=== PATIENT | male | born 1965 | race Caucasian/White ===

== ENCOUNTER → 2018-12-08 09:01 | Outpatient (CLI) | payer OTHER, SELFPAY ==
[2017-08-11 19:57] VITALS: BMI 31.2
[2018-12-08 12:43] LABS: Absolute Lymphocyte Count 2.23 X10^3/ul (0.83-4.51); Absolute Neutrophil Count 3.1 X10^3/uL (2.0-7.7); Basophil# 0.02 X10^3/uL; Basophil% 0.3 % (0-1); Eosinophils% 3.2 % (0-5); Hemoglobin 12.6 g/dl (13.0-16.5); Lymphocyte # 2.23 X10^3/ul (4.0); Mean Corp Hgb Conc 33.2 g/gl (32-36); Mean Corpuscular Hgb 30.8 pg (27.0-32.0); Mean Corpuscular Volume 92.9 fL (80-94); Mean Platelet Vol. 10.2 fl (6.2-12.0); Monocyte# 0.62 X10^3/uL; Neutrophil # 3.12 X10^3/uL (2.7-7.7); Neutrophil % 50.3 % (47-70); Platelet Count 289 K/mm3 (150-450); RBC Distribution Width CV 12.5 % (11.6-14.6); RBC Distribution Width SD 42.4 fl (35.1-43.9); Red Blood Count 4.09 M/mm3 (4.6-6.2); White Blood Count 6.2 K/mm3 (4.4-11.0)
[2018-12-08 12:45] LABS: POSITIVE COUNT NO; POSITIVE DIFFERENTIAL NO; POSITIVE MORPHOLOGY NO
[2018-12-08 13:07] LABS: Microalbumin,Random Urine 82.5 mg/L (NO RANGE EST.); Microalbumin:Creatinine Ratio 67.1 mg/g CRE (<30 mg/g CRE)
[2018-12-08 13:08] LABS: Hemoglobin A1c 6.1 % (4.2-6.3)
[2018-12-08 13:13] LABS: Vitamin B12 403 pg/mL (211-911)
[2018-12-08 13:56] LABS: AST(SGOT) 33 U/L (15-37); Alanine Aminotransfer ALT/SGPT 46 U/L (16-61); Albumin, Serum 4.3 g/dL (3.2-5.0); Alkaline Phosphatase 87 U/L (45-117); Anion Gap 9 (5-15); BUN 15 mg/dL (7-18); BUN/Creat Ratio 12.6 RATIO (10-20); Calcium,Total 9.5 mg/dL (8.5-10.1); Chloride 101 mmol/L (98-107); Cholesterol 162 mg/dL (200); Creatinine, Serum 1.19 mg/dL (0.70-1.30); EST Glomerular Filtration Rate 67 mL/min (>60); Est Glom Filt Rate - Afr Amer 81 mL/min (>60); Globulin 4.1 g/dL (2.2-4.2); Glucose 114 mg/dL (74-106); High Density Lipoprotein 47 mg/dL; PSA,Total - Annual Screen 0.63 ng/mL (0.00-4.00); Potassium 4.9 mmol/L (3.5-5.1); Protein, Total 8.4 g/dL (6.4-8.2); Sodium Level 136 mmol/L (136-145); Triglycerides 246 mg/dL; Very Low Density Lipoprotein 49 mg/dL (5-40)
== END ==
PROVIDERS: Family Provider Family Medicine; PCP Family Medicine; Visit Provider Family Medicine
DX: Z00.00 Encounter for general adult medical examination without abnormal findings (principal); E11.9 Type 2 diabetes mellitus without complications; R80.9 Proteinuria, unspecified; F10.20 Alcohol dependence, uncomplicated; E53.8 Deficiency of other specified B group vitamins; Z12.5 Encounter for screening for malignant neoplasm of prostate
CPT/HCPCS: 36415; 80053; 80061; 82043; 82570; 82607; 82746; 83036; 84153; 85025; G0103

== ENCOUNTER → 2019-06-08 08:33 | Outpatient (CLI) | payer OTHER, SELFPAY ==
[2019-06-08 12:59] LABS: Absolute Lymphocyte Count 1.84 X10^3/uL (0.83-4.51); Absolute Neutrophil Count 4.2 X10^3/uL (2.0-7.7); Basophil# 0.03 X10^3/uL; Basophil% 0.4 % (0-1); Eosinophil# 0.14 X10^3/uL; Eosinophils% 1.9 % (0-5); Hematocrit 40.8 % (40-54); Hemoglobin 13.9 g/dL (13.0-16.5); Lymphocyte # 1.84 X10^3/ul (4.0); Mean Corp Hgb Conc 34.1 g/dL (32-36); Mean Corpuscular Hgb 32.9 pg (27.0-32.0); Mean Corpuscular Volume 96.5 fL (80-94); Mean Platelet Vol. 9.5 fl (6.2-12.0); Monocyte# 1.12 X10^3/uL; Monocyte% 15.2 % (0-10); NRBC Flagged by Analyzer 0 % (0-5); Neutrophil % 57.1 % (47-70); Platelet Count 281 K/mm3 (150-450); RBC Distribution Width CV 12.7 % (11.6-14.6); Red Blood Count 4.23 M/mm3 (4.6-6.2); White Blood Count 7.4 K/mm3 (4.4-11.0)
[2019-06-08 13:31] LABS: AST(SGOT) 46 U/L (15-37); Alanine Aminotransfer ALT/SGPT 63 U/L (16-61); Albumin, Serum 4.1 g/dL (3.2-5.0); Alkaline Phosphatase 81 U/L (45-117); Anion Gap 9 (5-15); BUN 10 mg/dL (7-18); BUN/Creat Ratio 8.8 RATIO (10-20); Calcium,Total 9.1 mg/dL (8.5-10.1); Chloride 96 mmol/L (98-107); Cholesterol 131 mg/dL (200); Creatinine, Serum 1.14 mg/dL (0.70-1.30); EST Glomerular Filtration Rate 71 mL/min (>60); Est Glom Filt Rate - Afr Amer 85 mL/min (>60); Globulin 4.1 g/dL (2.2-4.2); Glucose 101 mg/dL (74-106); High Density Lipoprotein 76 mg/dL; Potassium 4.1 mmol/L (3.5-5.1); Protein, Total 8.2 g/dL (6.4-8.2); Sodium Level 131 mmol/L (136-145); Triglycerides 81 mg/dL; Very Low Density Lipoprotein 16 mg/dL (5-40)
[2019-06-08 13:32] LABS: Hemoglobin A1c 5.9 % (4.2-6.3)
== END ==
PROVIDERS: Family Provider Family Medicine; PCP Family Medicine; Visit Provider Family Medicine
DX: E11.9 Type 2 diabetes mellitus without complications (principal); I10 Essential (primary) hypertension; E78.5 Hyperlipidemia, unspecified; R00.0 Tachycardia, unspecified
CPT/HCPCS: 36415; 80053; 80061; 83036; 85025

== ENCOUNTER → 2019-08-10 13:46 | Outpatient (CLI) | payer OTHER, SELFPAY ==
--- NOTE | 2019-08-10 13:50 | ECHOD_ITS ---
Reason For Study: SYNCOPE Procedure This was a 2D Doppler, Color Flow transthoracic echocardiogram. Exam performed in department. Left Ventricle Normal LV size. Left ventricular systolic function is normal. The estimated ejection fraction is 60 %. Stage 1 diastolic dysfunction. No regional wall motion abnormalities noted. Right Ventricle Normal RV size. Normal systolic function. Atria Normal left atrium. Normal right atrium. Mitral Valve Normal mitral valve. Tricuspid Valve Normal tricuspid valve. Mild (1+) tricuspid valve insufficiency. Pulmonary artery systolic pressure is 38 mmHg. Aortic Valve The aortic valve is not well visualized. Pulmonic Valve Normal pulmonic valve. Great Vessels Normal aortic root. The pulmonary artery is normal size. Normal inferior vena cava. Pericardium/Pleural No pericardial effusion. MMode/2D Measurements & Calculations LVIDd: 5.3 cm IVSd: 0.91 cm Ao root diam: 3.6 cm LVIDs: 3.4 cm LVPWd: 0.93 cm FS: 37.0 % LAV(MOD-bp): 62.3 ml LA A4 area: 20.0 cm2 LA dimension(2D): 3.9 cm LAV(MOD-bp) Indexed: 30.5 ml/m2 LAV(MOD-sp2): 59.7 ml LAV(MOD-sp4): 60.4 ml RA A4 area: 14.5 cm2 Time Measurements MV dec time: 0.12 sec Doppler Measurements & Calculations MV E max mekhi: 90.2 cm/sec Lat Peak E' Mekhi: 10.9 cm/sec Med Peak E' Mekhi: 10.1 cm/sec MV A max mekhi: 102.8 cm/sec E/E' lat: 8.2 E/E' med: 9.0 MV E/A: 0.88 Ao V2 max: 123.0 cm/sec LV V1 max: 95.0 cm/sec TR max mekhi: 289.2 cm/sec Ao max P.1 mmHg LV V1 max P.6 mmHg TR max P.5 mmHg Interpretation Summary Normal LV size. Left ventricular systolic function is normal. The estimated ejection fraction is 60 %. Stage 1 diastolic dysfunction. Mild (1+) tricuspid valve insufficiency. Pulmonary artery systolic pressure is 38 mmHg. Ordering Physician: Heidi Urbina Referring Physician: Heidi Urbina Performed By: Sonali Kovacs, HIEN, RVT
== END ==
PROVIDERS: Family Provider Family Medicine; PCP Family Medicine; Referring Provider Family Medicine; Visit Provider Family Medicine
DX: I10 Essential (primary) hypertension (principal); R55 Syncope and collapse
CPT/HCPCS: 93306

== ENCOUNTER → 2020-09-03 09:22 | Outpatient (CLI) | payer OTHER, SELFPAY ==
[2020-09-03 12:44] LABS: Absolute Lymphocyte Count 1.62 X10^3/uL (0.83-4.51); Absolute Neutrophil Count 2.4 X10^3/uL (2.0-7.7); Basophil# 0.05 X10^3/uL; Eosinophil# 0.24 X10^3/uL; Eosinophils% 4.6 % (0-5); Hematocrit 35.9 % (40-54); Hemoglobin 12.4 g/dL (13.0-16.5); Lymphocyte # 1.62 X10^3/ul (4.0); Mean Corp Hgb Conc 34.5 g/dL (32-36); Mean Corpuscular Hgb 33.5 pg (27.0-32.0); Mean Platelet Vol. 10.3 fl (6.2-12.0); Monocyte# 0.93 X10^3/uL; Monocyte% 17.8 % (0-10); NRBC Flagged by Analyzer 0 % (0-5); Neutrophil # 2.36 X10^3/uL (2.7-7.7); Neutrophil % 45.2 % (47-70); Platelet Count 226 K/mm3 (150-450); RBC Distribution Width SD 42.6 fl (35.1-43.9); White Blood Count 5.2 K/mm3 (4.4-11.0)
[2020-09-03 13:02] LABS: Vitamin B12 568 pg/mL (211-911)
[2020-09-03 13:19] LABS: AST(SGOT) 101 U/L (15-37); Alanine Aminotransfer ALT/SGPT 135 U/L (16-61); Albumin, Serum 4.1 g/dL (3.2-5.0); Alkaline Phosphatase 102 U/L (45-117); Anion Gap 10 (5-15); BUN 15 mg/dL (7-18); BUN/Creat Ratio 13.6 RATIO (10-20); Calcium,Total 9.7 mg/dL (8.5-10.1); Chloride 102 mmol/L (98-107); Cholesterol 151 mg/dL (200); EST Glomerular Filtration Rate 73 mL/min (>60); Est Glom Filt Rate - Afr Amer 89 mL/min (>60); Globulin 4.3 g/dL (2.2-4.2); Glucose 94 mg/dL (74-106); High Density Lipoprotein 59 mg/dL; PSA,Total - Annual Screen 1.23 ng/mL (0.00-4.00); Protein, Total 8.4 g/dL (6.4-8.2); Sodium Level 138 mmol/L (136-145); Triglycerides 176 mg/dL; Very Low Density Lipoprotein 35 mg/dL (5-40)
[2020-09-03 13:23] LABS: Hemoglobin A1c 5.8 % (3.8-5.6)
[2020-09-03 13:28] LABS: Microalbumin:Creatinine Ratio 371.3 mg/g CRE (<30 mg/g CRE)
== END ==
PROVIDERS: PCP Family Medicine; Visit Provider Family Medicine
DX: Z00.00 Encounter for general adult medical examination without abnormal findings (principal); R73.03 Prediabetes; F10.20 Alcohol dependence, uncomplicated; R80.9 Proteinuria, unspecified; Z12.5 Encounter for screening for malignant neoplasm of prostate
CPT/HCPCS: 36415; 80053; 80061; 82043; 82570; 82607; 82746; 83036; 84153; 85025; G0103

== ENCOUNTER → 2020-09-17 09:33 | Outpatient (CLI) | payer OTHER, SELFPAY ==
--- NOTE | 2020-09-17 09:44 | US_ITS ---
STUDY: ABDOMINAL ULTRASOUND - RIGHT UPPER QUADRANT REASON FOR VISIT: Male, 55 years old RUQ/EPIGASTRIC PAIN, NAUSEA XX 2-3 MONTHS TECHNIQUE: Ultrasound evaluation of the right upper quadrant was performed with real-time and static brooks-scale imaging. TECHNICAL QUALITY: Adequate. COMPARISON: None. FINDINGS: Liver: The liver measures 16.3 cm. There is increased echogenicity consistent with fatty infiltration. The bile ducts are within normal limits. There is hepatic color flow. The direction of portal flow is hepatopetal. There is no demonstrated mass lesion. Gallbladder: Normal distended gallbladder. The gallbladder wall measures 3 mm. There is a negative sonographic Crawford''s sign. There is no pericholecystic fluid. There are no gallstones. Common Bile Duct (C.B.D.): The common bile duct measures 3 mm. Pancreas: Normal size of the head, body and tail of the pancreas. There is normal echogenicity of the pancreas. There is no demonstrated pancreatic mass or cyst. Right Kidney: Normal size of the right kidney. The right kidney measures 12.3 cm. Normal renal cortex. The right cortex measures 1.3 cm. There is no demonstrated renal mass or cyst. There is no right hydronephrosis. US/Abdomen Limited IMPRESSION: Fatty infiltration of the liver. Electronically Signed: Jordan Jacobs MD at 10:30 EST Tel , Service support ,
--- NOTE | 2020-09-17 10:10 | RAD_ITS ---
STUDY: X-RAY CHEST REASON FOR EXAM: Male, 55 years old. SOB RUQ ABDOMAN PAIN. HX OF COVID 1 MONTH AGO. TECHNIQUE: PA and lateral views of the chest. COMPARISON: 08/11/2017 FINDINGS: The lungs are clear and expanded. There is no demonstrated pleural abnormality. Normal size heart. Normal mediastinum and coral. Normal visualized pulmonary arteries. Normal visualized aortic arch and descending thoracic aorta. Normal visualized thoracic spine. Normal visualized ribs, clavicles, and shoulders. There is no demonstrated abnormality of the visualized soft tissue structures of the upper abdomen. RAD/Chest PA and Lateral IMPRESSION: Normal x-ray examination of the chest. Electronically Signed: Jordan Jacobs MD at 10:27 EST Tel , Service support ,
== END ==
PROVIDERS: PCP Family Medicine; Referring Provider Family Medicine; Visit Provider Family Medicine
DX: R10.11 Right upper quadrant pain (principal)
CPT/HCPCS: 71046; 76705

== ENCOUNTER → 2021-02-17 08:27 | Outpatient (CLI) | payer OTHER, SELFPAY ==
[2017-08-11 19:57] VITALS: BMI 31.2
[2021-02-17 09:46] LABS: Absolute Neutrophil Count 3.9 X10^3/uL (2.0-7.7); Basophil# 0.06 X10^3/uL; Basophil% 0.7 % (0-1); Eosinophil# 0.25 X10^3/uL; Eosinophils% 3.1 % (0-5); Hematocrit 37.3 % (40-54); Hemoglobin 12.5 g/dL (13.0-16.5); Lymphocyte % 35.6 % (19-41); Mean Corp Hgb Conc 33.5 g/dL (32-36); Mean Corpuscular Hgb 31.6 pg (27.0-32.0); Mean Corpuscular Volume 94.2 fL (80-94); Mean Platelet Vol. 10.1 fl (6.2-12.0); Monocyte# 1.01 X10^3/uL; Monocyte% 12.4 % (0-10); NRBC Flagged by Analyzer 0 % (0-5); Neutrophil # 3.87 X10^3/uL (2.7-7.7); Neutrophil % 47.5 % (47-70); Platelet Count 316 K/mm3 (150-450); RBC Distribution Width CV 12.4 % (11.6-14.6); RBC Distribution Width SD 42.7 fl (35.1-43.9); Red Blood Count 3.96 M/mm3 (4.6-6.2); White Blood Count 8.2 K/mm3 (4.4-11.0)
[2021-02-17 10:15] LABS: AST(SGOT) 25 U/L (15-37); Alanine Aminotransfer ALT/SGPT 31 U/L (16-61); Albumin, Serum 3.9 g/dL (3.2-5.0); Alkaline Phosphatase 113 U/L (45-117); Anion Gap 8 (5-15); BUN 18 mg/dL (7-18); BUN/Creat Ratio 17.8 RATIO (10-20); Calcium,Total 9.6 mg/dL (8.5-10.1); Chloride 103 mmol/L (98-107); Cholesterol 154 mg/dL (200); Creatinine, Serum 1.01 mg/dL (0.70-1.30); EST Glomerular Filtration Rate 81 mL/min (>60); Est Glom Filt Rate - Afr Amer 98 mL/min (>60); Globulin 4.1 g/dL (2.2-4.2); Glucose 119 mg/dL (74-106); High Density Lipoprotein 46 mg/dL; Potassium 4.1 mmol/L (3.5-5.1); Sodium Level 138 mmol/L (136-145); Triglycerides 153 mg/dL; Very Low Density Lipoprotein 31 mg/dL (5-40)
[2021-02-17 11:29] LABS: Hemoglobin A1c 5.9 % (3.8-5.6)
== END ==
PROVIDERS: PCP Family Medicine; Referring Provider Family Medicine; Visit Provider Family Medicine
DX: I10 Essential (primary) hypertension (principal); R73.03 Prediabetes; D53.9 Nutritional anemia, unspecified
CPT/HCPCS: 36415; 80053; 80061; 83036; 85025

== ENCOUNTER 2022-01-28 12:59 | Inpatient (IN) | payer OTHER, SELFPAY ==
[2022-01-28] VITALS (7 sets, daily range): BP systolic 137–155; BP diastolic 62–94; PULSE 84–106; RESP 16–18; TEMP 36.6–37.2; O2SAT 94–98; BMI 34.9; BMI 32.8
--- NOTE | 2022-01-28 13:20 | EX.ED.DYSGE1 ---
HPI <TERA David - Last Filed: 01/28/22 15:24> History of Present Illness Chief Complaint: Abd Pain Narrative Narrative: 57-year-old male with history of hypertension, hyperlipidemia who drinks alcohol daily, 6-8 beers daily with history of pancreatitis presents to the emergency department with 2 days of generalized abdominal bloating, diarrhea, nausea. Patient states the pain in his belly became worse over the last 24 hours, and due to his recent history of pancreatitis, continue alcohol use, he is scared and would like to be evaluated. Denies any fevers or chills, denies any blood in stool or vomit. PFSH <TERA David - Last Filed: 01/28/22 15:24> PFSH Medical History (Updated 01/28/22 @ 15:34 by Lisseth Ham) Alcohol use disorder Anxiety BPH (benign prostatic hyperplasia) Former smoker History of tobacco use HTN (hypertension) Pancreatitis Home Medications finasteride 5 mg PO DAILY 08/11/17 [History Last Taken 01/28/22] atorvastatin 40 mg PO DAILY #30 tab 08/12/17 [Rx Last Taken 01/28/22] buspirone 75 mg PO TID 01/28/22 [History Last Taken 01/28/22] lorazepam 1 mg PO DAILY PRN PRN 01/28/22 [History Last Taken Unknown] losartan 25 mg PO DAILY 01/28/22 [History Last Taken 01/28/22] metoprolol tartrate 25 mg PO BID 01/28/22 [History Last Taken 01/28/22] sildenafil (pulm.hypertension) 20 mg PO DAILY 01/28/22 [History Last Taken 01/28/22] Allergy/AdvReac Type Severity Reaction Status Date / Time No Known Allergies Allergy Verified 01/28/22 13:00 Social History (Updated 01/28/22 @ 15:33 by Mahesh DIXON) household members: spouse housing: house Smoking Status: Current every day smoker tobacco type: cigarettes alcohol intake: current alcohol intake frequency: 3 or more drinks per day Alcohol type: beer and wine details: 6-8 beers daily with wine. ROS <TERA David - Last Filed: 01/28/22 15:24> ROS ED ROS Narrative Constitutional: Negative for fever, chills, weight loss, weakness Eyes: Negative for vision loss, vision change, double vision ENT: Negative for any sore throat, ear pain, congestion Cardiovascular: Negative for any chest pain, tightness, palpitations, racing heartbeat Respiratory: Negative for any cough, sputum production, hemoptysis, shortness of breath, shortness of breath on exertion, orthopnea Gastrointestinal: Negative for any a vomiting, constipation, blood in stool, blood in vomit. Positive for abdominal pain, nausea, diarrhea : Negative for any urinary frequency, incontinence, dysuria, retention, blood in urine Muscle skeletal: Negative for any muscle joint pain, stiffness, myalgias, arthralgias, neck pain, back pain Neurological: Negative for any headache, dizziness, syncope, numbness or tingling Skin: Negative for any rashes, lumps, itching, abrasions, lacerations Psychiatric: Negative for any depression, anxiety, stress, suicidal ideation, homicidal ideation Hematologic: Negative for any easy bruising, excessive bruising, easy bleeding Allergies: Negative for any eczema, hives, rash EXAM <TERA David - Last Filed: 01/28/22 15:24> Physical Exam Narrative Exam Narrative: Vital signs reviewed. HEET: Head normocephalic atraumatic, TMs clear bilaterally. Posterior pharynx is clear, moist mucous membranes. Nares clear bilaterally. Neck: Supple with no lymphadenopathy or tenderness. No signs of meningismus, negative jolt sign. Cardiac: Regular rate and rhythm no murmurs gallops or rubs, equal peripheral pulses bilaterally. Respiratory: Lungs clear to auscultation bilaterally. No chest tenderness. Abdomen: Soft, patient's abdomen is distended, it is tender throughout the lower abdomen. Patient states that this also causes pain to his lower back.. No abdominal bruit or pulsatile masses. No hepatosplenomegaly Extremities: No peripheral edema, no signs of gross trauma or deformity. Active full range of motion of all extremities. Neuro: Cranial nerves II through XII intact, no focal neurological deficits. Skin: Clean dry and intact with no rash, purpura, petechiae, vesicles or pustules. Backslash flank: No CVA tenderness, no midline spinal tenderness, no deformity. Psych: Normal mood and affect. No SI, HI or acute psychosis. Const Vital Signs: 01/28/22 13:00 Temperature 98.3 F Temperature Source Temporal Pulse Rate 95 Respiratory Rate 17 Blood Pressure 155/89 H Blood Pressure Mean 111 Pulse Ox 98 Oxygen Delivery Method Room Air Positive well nourished and well developed General Appearance ED: well developed <Dr. Robel Leyva MD - Last Filed: 01/28/22 16:15> Physical Exam Const Vital Signs: 01/28/22 13:00 Temperature 98.3 F Temperature Source Temporal Pulse Rate 95 Respiratory Rate 17 Blood Pressure 155/89 H Blood Pressure Mean 111 Pulse Ox 98 Oxygen Delivery Method Room Air MDM <TERA David - Last Filed: 01/28/22 15:24> MDM MDM Narrative Medical decision making narrative: Patient arrives in mild distress secondary to abdominal pain. Patient presents the emergency department with abdominal bloating, abdominal pain, history of pancreatitis and still continues to drink alcohol. Patient did receive a full abdominal work-up. Patient's laboratory values show a CBC with leukocytosis of 16.3, patient's chemistries were unremarkable, patient's lipase was elevated at 4000 161 with amylase of 1472. This is concerning for acute pancreatitis. Patient did receive a CT scan without contrast, this verified the diffuse enlargement of pancreas with diffuse pancreatic inflammatory changes involving left perirenal space extending to the right side of the midline as well as the root of the mesentery. Patient did require 2 doses of IV pain medicine, patient to receive IV fluids, IV Zofran. Patient will be admitted for acute pancreatitis. Lab Data Attestation: I reviewed the patient's lab results. Labs: Laboratory Results - last 24 hr 01/28/22 01/28/22 13:21 13:21 WBC 16.3 H RBC 4.87 Hgb 15.6 Hct 43.7 MCV 89.7 MCH 32.0 MCHC 35.7 RDW Std Deviation 39.6 RDW Coeff of [place] 12.0 Plt Count 309 MPV 9.2 Immature Gran % (Auto) 0.500 Neut % (Auto) 83.0 H Lymph % (Auto) 5.6 L [place] % (Auto) 10.7 H Eos % (Auto) 0.0 Baso % (Auto) 0.2 Absolute Neuts (auto) 13.6 H Absolute Lymphs (auto) 0.91 Nucleated RBC % 0 Diff Path Review May foll Sodium 129 L Potassium 4.0 Chloride 95 L Carbon Dioxide 25.0 Anion Gap 9 BUN 18 Creatinine 1.00 Estim Creat Clear Calc 74.36 Est GFR (MDRD) Af Amer 99 Est GFR (MDRD) Non-Af 81 BUN/Creatinine Ratio 18.0 Glucose 171 H Calcium 9.9 Total Bilirubin 0.70 Direct Bilirubin 0.17 AST 39 H ALT 45 Alkaline Phosphatase 107 Total Protein 8.0 Albumin 3.8 Globulin 4.2 Amylase 1472 H Lipase 66517 H Radiography Diagnostic Testing: Clinical Impression(s) from Imaging Studies Abdomen/Pelvis CT 01/28/22 14:08 IMPRESSION: Diffuse enlargement of the pancreas with diffuse pancreatic inflammatory changes involving the left pararenal space extending into the right side of the midline as well as the root of the mesentery. No evidence of a suitable cyst formation at this time. Diffuse fatty infiltration of the liver. Electronically Signed: Aleksandr Adames MD at 14:43 EDT , <Dr. Robel Leyva MD - Last Filed: 01/28/22 16:15> MDM MDM Narrative Medical decision making narrative: Seen and evaluated independently and in conjunction with nurse practitioner. Agree with notes above unless documented otherwise. Patient presenting with 1 or 2 days of diffuse abdominal discomfort, distention. He has been drinking alcohol lately but states the discomfort did not start necessarily associated with the intake. Exam: NAD, diffusely tender and distended/obese, no fluid wave, no jaundice, no guarding or rebound. Work-up consistent with pancreatitis. Will admit for further treatment. Lab Data Attestation: I reviewed the patient's lab results. Labs: Laboratory Results - last 24 hr 01/28/22 01/28/22 13:21 13:21 WBC 16.3 H RBC 4.87 Hgb 15.6 Hct 43.7 MCV 89.7 MCH 32.0 MCHC 35.7 RDW Std Deviation 39.6 RDW Coeff of [place] 12.0 Plt Count 309 MPV 9.2 Immature Gran % (Auto) 0.500 Neut % (Auto) 83.0 H Lymph % (Auto) 5.6 L [place] % (Auto) 10.7 H Eos % (Auto) 0.0 Baso % (Auto) 0.2 Absolute Neuts (auto) 13.6 H Absolute Lymphs (auto) 0.91 Nucleated RBC % 0 [address] Review May foll Sodium 129 L Potassium 4.0 Chloride 95 L Carbon Dioxide 25.0 Anion Gap 9 BUN 18 Creatinine 1.00 Estim Creat Clear Calc 74.36 Est GFR (MDRD) Af Amer 99 Est GFR (MDRD) Non-Af 81 BUN/Creatinine Ratio 18.0 Glucose 171 H Calcium 9.9 Total Bilirubin 0.70 Direct Bilirubin 0.17 AST 39 H ALT 45 Alkaline Phosphatase 107 Total Protein 8.0 Albumin 3.8 Globulin 4.2 Amylase 1472 H Lipase 09083 H Radiography Diagnostic Testing: Clinical Impression(s) from Imaging Studies Abdomen/Pelvis CT 01/28/22 14:08 IMPRESSION: Diffuse enlargement of the pancreas with diffuse pancreatic inflammatory changes involving the left pararenal space extending into the right side of the midline as well as the root of the mesentery. No evidence of a suitable cyst formation at this time. Diffuse fatty infiltration of the liver. Electronically Signed: Aleksandr Adames MD at 14:43 EDT , Discharge Plan Dx/Rx/DC Orders Clinical Impression: Acute alcoholic pancreatitis Disposition Disposition: [facility]
[2022-01-28] MEDS: Ondansetron 4 MG/2 ML Vial IV (13:23)
[2022-01-28] MEDS: Morphine 4 MG/ML Syringe IV ×4 (13:23→21:18)
[2022-01-28] MEDS: 0.9% Normal Saline 1,000 ML 1000 ML IV (13:23)
[2022-01-28 13:33] LABS: Absolute Lymphocyte Count 0.91 X10^3/uL (0.83-4.51); Absolute Neutrophil Count 13.6 X10^3/uL (2.0-7.7); Basophil# 0.04 X10^3/uL; Basophil% 0.2 % (0-1); Hematocrit 43.7 % (40-54); Hemoglobin 15.6 g/dL (13.0-16.5); Lymphocyte # 0.91 X10^3/ul (0.83-4.51); Lymphocyte % 5.6 % (19-41); Mean Corp Hgb Conc 35.7 g/dL (32-36); Mean Corpuscular Volume 89.7 fL (80-94); Mean Platelet Vol. 9.2 fl (6.2-12.0); Monocyte# 1.75 X10^3/uL; Monocyte% 10.7 % (0-10); NRBC Flagged by Analyzer 0 % (0-5); Neutrophil # 13.56 X10^3/uL (2.7-7.7); POSITIVE DIFFERENTIAL YES; Platelet Count 309 K/mm3 (150-450); RBC Distribution Width SD 39.6 fl (35.1-43.9); Red Blood Count 4.87 M/mm3 (4.6-6.2); White Blood Count 16.3 K/mm3 (4.4-11.0)
[2022-01-28 13:36] LABS: Differential Indicated SCAN CRITERIA MET
[2022-01-28 13:52] LABS: AST(SGOT) 39 U/L (15-37); Alanine Aminotransfer ALT/SGPT 45 U/L (16-61); Albumin, Serum 3.8 g/dL (3.2-5.0); Alkaline Phosphatase 107 U/L (45-117); Anion Gap 9 (5-15); BUN 18 mg/dL (7-18); Bilirubin, Direct 0.17 mg/dL (0.00-0.30); Calcium,Total 9.9 mg/dL (8.5-10.1); Chloride 95 mmol/L (98-107); EST Glomerular Filtration Rate 81 mL/min (>60); Est Glom Filt Rate - Afr Amer 99 mL/min (>60); Estimated Creatinine Clearance 74.36 ml/min; Globulin 4.2 g/dL (2.2-4.2); Glucose 171 mg/dL (74-106); Lipase 24861 U/L (73-393); Sodium Level 129 mmol/L (136-145)
--- NOTE | 2022-01-28 14:08 | CT_ITS ---
STUDY: CT ABDOMEN AND PELVIS WITHOUT CONTRAST REASON FOR EXAM: Male, 57 years old. Left lower quadrant pain. History of pancreatitis. 5 day history of diarrhea. RADIATION DOSAGE (If Supplied By Facility): CTDIvol = ( 18.45 ) mGy, DLP = ( 911.30 ) mGycm TECHNIQUE: Transaxial images were obtained from the dome of the diaphragm to the symphysis pubis without oral contrast, and without intravenous contrast. Sagittal and coronal images were reconstructed. Individualized dose optimization techniques were used for this CT. COMPARISON: None. FINDINGS: Increased interstitial markings with subpleural blebs at the lung bases suggestive of chronic interstitial fibrosis. Mild coronary artery calcification. There is decreased attenuation of the liver consistent with steatosis. Borderline hepatomegaly. Normal gallbladder and extrahepatic biliary system. Normal spleen. There is diffuse enlargement of the pancreas with bonifacio-pancreatic edema suggesting acute pancreatitis. Increased markings are seen within the left parapelvic region. Inflammatory changes also seen within the root of the mesentery. Normal bilateral adrenal glands. Normal right kidney. Normal left kidney. Normal visualized stomach. Normal small intestine. There are multiple colonic diverticula consistent with diverticulosis. The appendix is visualized and appears normal. There is scattered atherosclerotic calcification of the abdominal aorta, without a demonstrated aneurysm. Normal inferior vena cava. Normal retroperitoneum. Normal urinary bladder. Normal abdominal wall. Disc space narrowing and disc degeneration with spondylosis. CT/Abdomen/Pelvis without Cont IMPRESSION: Diffuse enlargement of the pancreas with diffuse pancreatic inflammatory changes involving the left pararenal space extending into the right side of the midline as well as the root of the mesentery. No evidence of a suitable cyst formation at this time. Diffuse fatty infiltration of the liver. Electronically Signed: Aleksandr Adames MD at 14:43 EDT ,
[2022-01-28 14:23] LABS: Amylase 1472 U/L (25-115)
--- NOTE | 2022-01-28 15:24 | PCM.HP.STD ---
Documented by User: Mahesh DIXON 01/28/22 15:46 HPI - General HPI Narrative UGO KRUSE is a 57-year-old male who presents to the ED at [facility] on 01/28/2022 with a chief complaint of abdominal pain. Patient believes that his abdominal pain is due to pancreatitis, which he has had in the past. Patient complains of abdominal pain, which says began yesterday. Patient also reports some diarrhea which has been going on for the past 5 days now. Patient does endorse still drinking, reports to drinking 6-8 beers daily with periodic glasses of wine. Patient reports that his last time drinking was yesterday afternoon. Denies any withdrawal symptoms currently. Patient not interested in seeking alcohol withdrawal treatment at this time. Vital signs are stable and patient is afebrile. CBC does show a mild elevated white count 16,000, otherwise unremarkable. CMP shows sodium at 129, other electrolytes stable. LFTs and alk phos are within normal limits. Amylase and lipase are elevated at 14[address] of the abdomen/pelvis demonstrates diffuse enlargement of the pancreas with pancreatic inflammatory changes and diffuse fatty infiltration of the liver. Patient will be admitted for supportive management. [facility] Medical History (Updated 01/28/22 @ 15:34 by Lisseth Ham) Alcohol use disorder Anxiety BPH (benign prostatic hyperplasia) Former smoker History of tobacco use HTN (hypertension) Pancreatitis Home Medications finasteride 5 mg PO DAILY 08/11/17 [History Last Taken 01/28/22] atorvastatin 40 mg PO DAILY #30 tab 08/12/17 [Rx Last Taken 01/28/22] buspirone 75 mg PO TID 01/28/22 [History Last Taken 01/28/22] lorazepam 1 mg PO DAILY PRN PRN 01/28/22 [History Last Taken Unknown] losartan 25 mg PO DAILY 01/28/22 [History Last Taken 01/28/22] metoprolol tartrate 25 mg PO BID 01/28/22 [History Last Taken 01/28/22] sildenafil (pulm.hypertension) 20 mg PO DAILY 01/28/22 [History Last Taken 01/28/22] Allergy/AdvReac Type Severity Reaction Status Date / Time No Known Allergies Allergy Verified 01/28/22 13:00 Family History no significant family his no significant family history Surgical History no surgical history no surgical history Social History (Updated 01/28/22 @ 15:33 by Mahesh DIXON) household members: spouse housing: house Smoking Status: Current every day smoker tobacco type: cigarettes alcohol intake: current alcohol intake frequency: 3 or more drinks per day Alcohol type: beer and wine details: 6-8 beers daily with wine. ROS Constitutional Constitutional: Denies anorexia, change in weight, chills, fatigue, fever(s), malaise, night sweats, weakness or other Eyes Eyes: Denies blurry vision, change in eye color, change in vision, discharge from eye(s), double vision, erythema, eye pain, loss of vision or other ENT HEENT: Denies abnormal hearing, dysphagia, ear pain, epistaxis, headache(s), hearing loss, nasal congestion, nasal discharge, post nasal drip, sinus pressure, sore throat or other Cardiovascular Cardiovascular: Denies chest pain, claudication, dyspnea on exertion, edema, lightheadedness, orthopnea, palpitations, paroxysmal nocturnal dyspnea, rapid heart rate, syncope or other Respiratory/Chest Respiratory/Chest: Denies cough, dyspnea, excessive phlegm production, hemoptysis, productive cough, shortness of breath at rest, shortness of breath with exertion, wheezing or other Gastrointestinal Gastrointestinal: Reports abdominal pain and diarrhea; Denies coffee ground emesis, constipation, dyspepsia, hematemesis, hematochezia, loose stools, melena, nausea, vomiting or other Musculoskeletal Musculoskeletal: Denies arthralgias, back pain, joint pain, joint stiffness, joint swelling, myalgias, neck pain or other Neurologic Neurologic: Denies abnormal gait, abnormal speech, confusion, disequilibrium, dizziness, focal weakness, headache(s), numbness, paresthesias, seizure-like activity, seizures, syncope, tingling, tremor(s) or other Psychiatric Psychiatric: Denies anxiety, depression, homicidal ideation, suicidal ideation or other Endocrine Endocrinology: Denies change in body appearance, cold intolerance, excessive sweating, heat intolerance, polydipsia, polyuria or other Hematologic/Lymphatic Hematologic/Lymphatic: Denies anemia, easy bleeding, easy bruising, lymphadenopathy or other Allergic/Immunologic Allergic/Immunologic: Denies rhinitis, hives, eczemia, asthma or other Vital Signs Vital Signs Vital Signs: 01/28/22 13:00 Temperature 98.3 F Temperature Source Temporal Pulse Rate 95 Respiratory Rate 17 Blood Pressure 155/89 H Blood Pressure Mean 111 Pulse Ox 98 Oxygen Delivery Method Room Air Weight Weight: 222 lb 14.197 oz Body Mass Index (BMI) 34.9 Physical Exam Const alert and oriented x3 General Appearance: cooperative HEENT normocephalic, head/scalp atraumatic and hearing grossly normal bilaterally Eyes PERRL, EOMs intact bilaterally and conjunctivae normal Neck no lymphadenopathy, supple and no JVD Resp normal respiratory effort, no retractions and no use of accessory muscles Cardio regular rate, regular rhythm and no JVD GI Inspection: abdominal distention Palpation: firm Percussion: dullness to percussion Extremity normal to inspection, full ROM and no clubbing, cyanosis or edema Skin no rashes or lesions noted, no wounds and no jaundice Neuro CN's II-XII intact bilaterally Psych affect normal Results Lab / Micro Data Result Diagrams: 01/28/22 13:21 01/28/22 13:21 Labs: Laboratory Results - last 24 hr 01/28/22 13:21: WBC 16.3 H, RBC 4.87, Hgb 15.6, Hct 43.7, MCV 89.7, MCH 32.0, MCHC 35.7, RDW Std Deviation 39.6, RDW Coeff of [place] 12.0, Plt Count 309, MPV 9.2, Immature Gran % (Auto) 0.500, Neut % (Auto) 83.0 H, Lymph % (Auto) 5.6 L, [place] % (Auto) 10.7 H, Eos % (Auto) 0.0, Baso % (Auto) 0.2, Absolute Neuts (auto) 13.6 H, Absolute Lymphs (auto) 0.91, Nucleated RBC % 0, Diff Path Review January01/28/22 13:21: Sodium 129 L, Potassium 4.0, Chloride 95 L, Carbon Dioxide 25.0, Anion Gap 9, BUN 18, Creatinine 1.00, Estim Creat Clear Calc 74.36, Est GFR (MDRD) Af Amer 99, Est GFR (MDRD) Non-Af 81, BUN/Creatinine Ratio 18.0, Glucose 171 H, Calcium 9.9, Total Bilirubin 0.70, Direct Bilirubin 0.17, AST 39 H, ALT 45, Alkaline Phosphatase 107, Total Protein 8.0, Albumin 3.8, Globulin 4.2, Amylase 1472 H, Lipase 75503 H Radiology Impression Abdomen/Pelvis CT 01/28/22 14:08 IMPRESSION: Diffuse enlargement of the pancreas with diffuse pancreatic inflammatory changes involving the left pararenal space extending into the right side of the midline as well as the root of the mesentery. No evidence of a suitable cyst formation at this time. Diffuse fatty infiltration of the liver. Electronically Signed: Aleksandr Adames MD at 14:43 EDT , Assessment & Plan Assessment/Plan (1) Acute alcoholic pancreatitis: (2) Alcohol use disorder: (3) Alcohol abuse: PLAN: Patient is a 57-year-old male who presents to the ED at [facility] on 01/20/2022 with progressively worsening abdominal pain and diarrhea. Patient will be admitted for evaluation and management of acute pancreatitis. 1)Acute pancreatitis Likely related to alcoholic intake, patient reports drinking 6-8 beers daily with periodic wine. Amylase and lipase significantly elevated. LFTs and alk phos are within normal limits. We will not obtain ultrasound of the gallbladder due to known cholestatic pattern. CT of the abdomen/pelvis as above. Plan; initiate IV fluids, initiate phenobarbital 64.8 mg every 6 hours, initiate thiamine and folic acid supplementation, as needed Ativan ordered, CBC and CMP in a.m., clear liquid diet ordered, CIWA scores ordered. 2) acute on chronic alcohol abuse Patient reports last drink was yesterday afternoon. Denies any acute withdrawal symptoms currently. Patient not interested in receiving alcohol counseling services during admission. Plan; initiate phenobarbital as above, initiate thiamine and folic acid supplementation, as needed Ativan ordered, supportive medications as above, CIWA scores ordered. 3) leukocytosis WBC is currently 16,000, likely reactionary to #1. Patient does not appear septic and is without infectious symptoms at this time. Plan; as above. 4) hyperlipidemia Continue statin. 5) tobacco abuse Continue buspirone. 6) HTN Continue metoprolol and losartan. 7) pulmonary hypertension Continue sildenafil. 8) BPH Continue Proscar and Cardura. DVT prophylaxis - Heparin Patient seen by Mahesh Canales PA-C, under the supervision of Dr. Arshad. Time spent on patient care: 25 minutes. Documented by User: Dr. Srinivas Arshad, 01/28/22 16:47 HPI - General General Date of Admission: 01/28/22 [facility] Medical History (Updated 01/28/22 @ 15:34 by Lisseth Ham) Alcohol use disorder Anxiety BPH (benign prostatic hyperplasia) Former smoker History of tobacco use HTN (hypertension) Pancreatitis Home Medications finasteride 5 mg PO DAILY 08/11/17 [History Last Taken 01/28/22] atorvastatin 40 mg PO DAILY #30 tab 08/12/17 [Rx Last Taken 01/28/22] buspirone 75 mg PO TID 01/28/22 [History Last Taken 01/28/22] lorazepam 1 mg PO DAILY PRN PRN 01/28/22 [History Last Taken Unknown] losartan 25 mg PO DAILY 01/28/22 [History Last Taken 01/28/22] metoprolol tartrate 25 mg PO BID 01/28/22 [History Last Taken 01/28/22] sildenafil (pulm.hypertension) 20 mg PO DAILY 01/28/22 [History Last Taken 01/28/22] Allergy/AdvReac Type Severity Reaction Status Date / Time No Known Allergies Allergy Verified 01/28/22 13:00 Family History no significant family his Surgical History no surgical history Social History (Updated 01/28/22 @ 15:33 by Mahesh DIXON) household members: spouse housing: house Smoking Status: Current every day smoker tobacco type: cigarettes alcohol intake: current alcohol intake frequency: 3 or more drinks per day Alcohol type: beer and wine details: 6-8 beers daily with wine. Results Lab / Micro Data Result Diagrams: 01/28/22 13:21 01/28/22 13:21 Charges/Coding Addendum Addendum: Patient was seen and examined today independently of Mahesh Canales, he came to the ER today at [facility] with complaints of generalized abdominal pain since yesterday. Patient has had a history of pancreatitis approximately a year ago, he has been through alcohol detox before but he continues to drink. Patient states he drinks anywhere from 6-8 beers per day. Patient also states that he has been having some diarrhea for the last few days. Patient denied any vomiting and nausea. On examination he appeared in good health and spirits. Vital signs as documented. Skin warm and dry and without overt rashes. Neck without JVD, neck was supple, trachea midline, thyroid was normal. Lungs clear bilaterally, normal air movement was noted. Heart exam notable for regular rhythm, normal sounds and absence of murmurs, rubs or gallops. Abdomen-abdomen was tympanic and distended, I was unable to appreciate any organomegaly due to the abdominal distention. Bowel sounds are diminished. Extremities nonedematous, no cyanosis was noted, no clubbing was noted. Neuro: Cranial nerves II through XII are grossly intact, no focal motor deficits were noted, sensation to light touch and pinprick intact, motor exam 5/5 throughout. Psych: Patient is alert and oriented x3, he does not appear anxious or depressed, he does not appear agitated. Labs obtained in the emergency room showed an elevated white blood cell count at 16.3, patient's sodium was low at 129, chloride was 95, glucose was 171, AST was mildly elevated at 39, patient's alkaline phosphatase was normal, amylase was elevated at 1472 and lipase was 24,861. CT of the abdomen and pelvis without oral contrast showed diffuse enlargement of the pancreas with diffuse pancreatic inflammatory changes as well as diffuse fatty infiltration of the liver. There was no evidence of a pancreatic cyst noted to be present. Impression: #1 acute recurrent pancreatitis secondary to chronic alcoholism-patient will be admitted to [facility], he will be given IV fluids, labs will be monitored. #2 chronic alcoholism-I had a brief discussion with the patient and he states he does not feel he wants to talk with anybody concerning any alcohol detox programs, he states I can do it on my own-I am doubtful of this but if the patient changes his mind about this he will be able to talk to 180 during his admission here. Due to his chronic alcohol intake, I have elected to place him on programmed phenobarbital which could be adjusted as needed. Patient will be given IV Ativan or p.o. Ativan if necessary also. #3 essential hypertension-patient will remain on his current medications #4 alcoholic fatty liver disease-again patient will be encouraged to consider detox services as an outpatient. #5 BPH-patient is currently on medications, these will be continued in the hospital #6 pulmonary hypertension-patient is taking sildenafil as an outpatient, this will be continued #7 chronic anxiety-patient is on BuSpar, this will be continued #8 hyperlipidemia-patient will remain on atorvastatin I have reviewed Mahesh Canales's history and physical including his medical assessment and plan of care with the above additions endorse it. Total clinical time spent by myself addressing the patient's medical issues, reviewing the patient's data, and collaborating with the patient's caregivers: 45 minutes. Visit Charges Inpatient E&M: 51257 Init Hosp L3
--- NOTE | 2022-01-28 15:34 | NURSING ---
MED SURG [facility] ACUTE ALCOHOLIC PANCREATITIS
[2022-01-28] MEDS: 0.9% Saline Lock 10 ML Syringe IV (17:57)
[2022-01-28] MEDS: 0.9% Normal Saline 1,000 ML 175 ML IV ×2 (18:03→22:15)
[2022-01-28] MEDS: Phenobarbital 32.4 MG Tablet 64.8 MG PO (18:09)
[2022-01-28] MEDS: Thiamine Hydrochloride 100 MG Tablet PO (18:09)
[2022-01-28] MEDS: busPIRone 5 MG Tablet 10 MG PO (21:07)
[2022-01-28] MEDS: Atorvastatin Calcium 40 MG Tablet PO (21:08)
[2022-01-28] MEDS: Metoprolol Tartrate 25 MG Tablet PO (21:08)
[2022-01-28] MEDS: Heparin Injection (Vial) 5,000 UNIT/ML VIAL 5000 UNIT SC (21:08)
[2022-01-29] VITALS (12 sets, daily range): BP systolic 94–129; BP diastolic 57–81; PULSE 104–117; RESP 16–18; TEMP 36.5–37.5; O2SAT 92–95
[2022-01-29] MEDS: Phenobarbital 32.4 MG Tablet 64.8 MG PO ×4 (00:10→18:04)
[2022-01-29] MEDS: Morphine 4 MG/ML Syringe IV ×6 (00:19→22:31)
[2022-01-29] MEDS: 0.9% Normal Saline 1,000 ML 175 ML IV ×4 (03:46→22:38)
[2022-01-29 06:03] LABS: Absolute Lymphocyte Count 0.75 X10^3/uL (0.83-4.51); Absolute Neutrophil Count 19.1 X10^3/uL (2.0-7.7); Basophil# 0.05 X10^3/uL; Basophil% 0.2 % (0-1); Hematocrit 43.5 % (40-54); Lymphocyte # 0.75 X10^3/ul (0.83-4.51); Lymphocyte % 3.5 % (19-41); Mean Corp Hgb Conc 34.5 g/dL (32-36); Mean Corpuscular Volume 92.8 fL (80-94); Mean Platelet Vol. 9.1 fl (6.2-12.0); Monocyte# 1.37 X10^3/uL; Monocyte% 6.4 % (0-10); NRBC Flagged by Analyzer 0 % (0-5); Neutrophil # 19.12 X10^3/uL (2.7-7.7); Neutrophil % 89.4 % (47-70); Platelet Count 265 K/mm3 (150-450); RBC Distribution Width CV 12.5 % (11.6-14.6); RBC Distribution Width SD 42.7 fl (35.1-43.9); Red Blood Count 4.69 M/mm3 (4.6-6.2); White Blood Count 21.4 K/mm3 (4.4-11.0)
[2022-01-29 06:29] LABS: AST(SGOT) 48 U/L (15-37); Alanine Aminotransfer ALT/SGPT 33 U/L (16-61); Alkaline Phosphatase 76 U/L (45-117); Anion Gap 8 (5-15); BUN 19 mg/dL (7-18); BUN/Creat Ratio 19.3 RATIO (10-20); Bilirubin, Direct 0.12 mg/dL (0.00-0.30); Calcium,Total 8.6 mg/dL (8.5-10.1); Chloride 98 mmol/L (98-107); Creatinine, Serum 0.99 mg/dL (0.70-1.30); EST Glomerular Filtration Rate 83 mL/min (>60); Est Glom Filt Rate - Afr Amer 100 mL/min (>60); Estimated Creatinine Clearance 80.34 ml/min; Globulin 3.8 g/dL (2.2-4.2); Glucose 179 mg/dL (74-106); Potassium 4.4 mmol/L (3.5-5.1); Protein, Total 6.8 g/dL (6.4-8.2); Sodium Level 128 mmol/L (136-145)
[2022-01-29] MEDS: Thiamine Hydrochloride 100 MG Tablet PO ×2 (07:57→18:05)
[2022-01-29] MEDS: Folic Acid 1 MG Tablet PO (07:57)
[2022-01-29] MEDS: 0.9% Saline Lock 10 ML Syringe IV ×3 (07:57→22:33)
[2022-01-29] MEDS: Multivitamins,Ther W-Minerals Tablet 1 TABLET PO (07:57)
[2022-01-29] MEDS: busPIRone 5 MG Tablet 10 MG PO ×2 (09:39→22:26)
[2022-01-29] MEDS: Doxazosin 4 MG Tablet PO (09:39)
[2022-01-29] MEDS: Heparin Injection (Vial) 5,000 UNIT/ML VIAL 5000 UNIT SC ×2 (09:40→22:35)
[2022-01-29] MEDS: Losartan Potassium 100 MG Tablet PO (09:40)
[2022-01-29] MEDS: Metoprolol Tartrate 25 MG Tablet PO ×2 (09:41→22:26)
[2022-01-29] MEDS: Finasteride 5 MG Tablet PO (09:41)
--- NOTE | 2022-01-29 09:59 | US_ITS ---
STUDY: ABDOMINAL ULTRASOUND - RIGHT UPPER QUADRANT REASON FOR VISIT: Male, 57 years old Pancreatitis TECHNIQUE: Ultrasound evaluation of the right upper quadrant was performed with real-time and static brooks-scale imaging. TECHNICAL QUALITY: Adequate. COMPARISON: Comparison is made with prior CT scan of the abdomen and pelvis dated 01/28/2022. FINDINGS: Liver: The liver measures 17.8 cm. There is increased echogenicity consistent with fatty infiltration. The bile ducts are within normal limits. There is hepatic color flow. The direction of portal flow is hepatopetal. There is no demonstrated mass lesion. Gallbladder: Normal distended gallbladder. The gallbladder wall measures 2.1 mm. There is a negative sonographic Crawford''s sign. There is no pericholecystic fluid. There are no gallstones. Common Bile Duct (C.B.D.): The common bile duct measures 4.4 mm. Pancreas: Diffuse enlargement of the pancreas. The pancreas is hypoechoic. There is no demonstrated pancreatic mass or cyst. Right Kidney: Normal size of the right kidney. The right kidney measures 12.7 cm x 5.4 cm x 7 cm. Normal renal cortex. The right cortex measures 1.9 cm. There is no demonstrated renal mass or cyst. There is no right hydronephrosis. US/Gallbladder IMPRESSION: Borderline hepatomegaly. Fatty infiltration of the liver. Diffuse enlargement of the pancreas with decreased echotexture. Electronically Signed: Aleksandr Adames MD at 13:27 EDT ,
--- NOTE | 2022-01-29 10:02 | EKG12_ITS ---
Test Reason : Blood Pressure : / mmHG Vent. Rate : 108 BPM Atrial Rate : 108 BPM P-R Int : 164 ms QRS Dur : 078 ms QT Int : 308 ms P-R-T Axes : 038 018 023 degrees QTc Int : 412 ms Sinus tachycardia Otherwise normal ECG When compared with ECG of 12-AUG-2017 05:22, No significant change was found Confirmed by LESLIE TOUSSAINT, MELL ([id number]), editor city MARIA LUZ GAMA ([id number]) on 01/29/2022 1:05:45 PM Referred By: SHABBIR Confirmed By:MELL NELSON MD
--- NOTE | 2022-01-29 10:20 | CASEMGMT ---
Addendum entered by Jennifer Morrell 01/29/22 15:21: Provided pt with rack card for social media designer to complete LW/DPOA. Original Note: BRIEN YATES Assessment: Face to Face with pt for initial transition planning/care coordination assessment. BRIEN YATES introduced self and role at [facility], pt voices understanding and consents to assessment. Pt is A/O x4 and answers all questions appropriately at this time. Pt sitting up in bed with at bedside. Care providers, pharmacy, and demographics verified/updated. Admitting Dx: recurrent alcoholic pancreatitis PCP:[facility] Specialists:Pt denies. Preferred Pharmacy: [facility] Insurance: MMO Prescription Benefit: yes LW/HPOA: Pt states he thinks he has a LW/DPOA and he would like to have this redone as he just got in March. Made aware if SW unable to complete today, BRIEN YATES can provide card for pt to have done as outpt. Notified SW. LNOK: Ning Avila, ; Pierce Avila, son Living Arrangements: Pt lives with in a two story home with 4 steps to enter with a rail. Pt reports he is I in ADL's and denies concerns at home. Transportation: Pt drives self and denies concerns with transportation. DME/HHC/SNF: Pt denies having any DME, hx of HHC or SNF stays. Pt states no concerns with going home at time of dc. Pt drinks 6-8 beers daily, denies cigarette, street or illegal drugs. Pt denies need for any cessation info. Pt states no further concerns/needs. CM to follow. Advised pt to ask CM if any further question/concerns/needs arise, voices understanding. Pt Goal: Home Plan: Home
--- NOTE | 2022-01-29 12:35 | PCM.PN.HOSP ---
Documented by User: Mahesh DIXON 01/29/22 12:51 Subjective Subjective Patient is a 57-year-old male comfortably resting in bed, alert and oriented x3. Patient reports that his abdominal pain has significantly improved from admission. Denies development of any new symptoms overnight. Does not appear in acute distress. Objective Data Objective Data Vital Signs: Vital Signs Temp Pulse Resp BP Pulse Ox 99.3 F H 107 H 16 94/67 95 01/29/22 12:05 01/29/22 12:05 01/29/22 12:05 01/29/22 12:05 01/29/22 12:05 Oxygen Delivery Method Room Air Weight: 222 lb 7.143 oz Body Mass Index (BMI) 32.8 Intake & Output: Intake and Output for Last 24 Hours 01/27/22 01/28/22 01/29/22 23:59 23:59 23:59 Intake Total 1735 / 1735 1965.42 / 1965.42 Balance 1735 / 1735 1965.42 / 1964.42 Lab / Micro Data Result Diagrams: 01/29/22 05:52 01/29/22 05:52 Labs: Laboratory Results - last 24 hr 01/28/22 13:21: WBC 16.3 H, RBC 4.87, Hgb 15.6, Hct 43.7, MCV 89.7, MCH 32.0, MCHC 35.7, RDW Std Deviation 39.6, RDW Coeff of [place] 12.0, Plt Count 309, MPV 9.2, Immature Gran % (Auto) 0.500, Neut % (Auto) 83.0 H, Lymph % (Auto) 5.6 L, [place] % (Auto) 10.7 H, Eos % (Auto) 0.0, Baso % (Auto) 0.2, Absolute Neuts (auto) 13.6 H, Absolute Lymphs (auto) 0.91, Nucleated RBC % 0, Diff Path Review January01/28/22 13:21: Sodium 129 L, Potassium 4.0, Chloride 95 L, Carbon Dioxide 25.0, Anion Gap 9, BUN 18, Creatinine 1.00, Estim Creat Clear Calc 74.36, Est GFR (MDRD) Af Amer 99, Est GFR (MDRD) Non-Af 81, BUN/Creatinine Ratio 18.0, Glucose 171 H, Calcium 9.9, Total Bilirubin 0.70, Direct Bilirubin 0.17, AST 39 H, ALT 45, Alkaline Phosphatase 107, Total Protein 8.0, Albumin 3.8, Globulin 4.2, Amylase 1472 H, Lipase 25706 H 01/29/22 05:52: WBC 21.4 H, RBC 4.69, Hgb 15.0, Hct 43.5, MCV 92.8, MCH 32.0, MCHC 34.5, RDW Std Deviation 42.7, RDW Coeff of [place] 12.5, Plt Count 265, MPV 9.1, Immature Gran % (Auto) 0.500, Neut % (Auto) 89.4 H, Lymph % (Auto) 3.5 L, [place] % (Auto) 6.4, Eos % (Auto) 0.0, Baso % (Auto) 0.2, Absolute Neuts (auto) 19.1 H, Absolute Lymphs (auto) 0.75 L, Nucleated RBC % 0 01/29/22 05:52: Sodium 128 L, Potassium 4.4, Chloride 98, Carbon Dioxide 22.0, Anion Gap 8, BUN 19 H, Creatinine 0.99, Estim Creat Clear Calc 80.34, Est GFR (MDRD) Af Amer 100, Est GFR (MDRD) Non-Af 83, BUN/Creatinine Ratio 19.3, Glucose 179 H, Calcium 8.6, Total Bilirubin 0.60, Direct Bilirubin 0.12, AST 48 H, ALT 33, Alkaline Phosphatase 76, Total Protein 6.8, Albumin 3.0 L, Globulin 3.8 Radiography Diagnostic Testing: Radiology Impression Abdomen/Pelvis CT 01/28/22 14:08 IMPRESSION: Diffuse enlargement of the pancreas with diffuse pancreatic inflammatory changes involving the left pararenal space extending into the right side of the midline as well as the root of the mesentery. No evidence of a suitable cyst formation at this time. Diffuse fatty infiltration of the liver. Electronically Signed: Aleksandr Adames MD at 14:43 EDT , Physical Exam Const alert, oriented x3 and no apparent distress HEENT head/scalp atraumatic and moist oral mucous membranes Head and Scalp: normocephalic Eyes PERRL, EOMs intact bilaterally and conjunctivae normal Neck no lymphadenopathy, supple and no JVD Resp normal respiratory effort, no retractions and no use of accessory muscles Cardio regular rhythm and no JVD Rate: tachycardic GI Inspection: abdominal distention and central obesity Auscultation: hypoactive bowel sounds Palpation: firm Extremity normal to inspection, full ROM and no clubbing, cyanosis or edema Skin no rashes or lesions noted Neuro CN's II-XII intact bilaterally Psych affect normal Assessment & Plan Assessment/Plan (1) Acute alcoholic pancreatitis: (2) Alcohol abuse: (3) Alcohol use disorder: (4) Acute kidney injury: PLAN: Day 1 Discharge planning: To discharge home when medically ready. 1) Acute recurrent pancreatitis secondary to chronic alcoholism. Amylase and lipase elevated at 1472and 24,861 respectively on admission. LFTs and alk phos still within normal limits. Patient reports that his abdominal distention is improved from admission, reports tolerating clear liquid diet well. We will continue IV fluids and advance diet to full liquids, will advance as tolerated. 2) acute on chronic alcohol abuse Had lengthy discussion about patient's need to stop drinking completely in order to avoid his recurrent bouts of pancreatitis. Patient voices understanding and was curious about alcohol counseling services on discharge. CIWA-AR scores are 0. We will continue phenobarbital to avoid withdrawal, continue thiamine and folic acid supplementation, as needed Ativan ordered. 3) leukocytosis WBC is currently 21,000, likely reactionary to #1. Patient does not appear septic and is without infectious symptoms at this time. Plan; as above. 4) Sinus tachycardia Patient with several bouts of tachycardia observed overnight. Patient denies any chest pain or shortness of breath. We will place patient on telemetry monitoring, as well as obtain EKG. 5) tobacco abuse Continue buspirone. 6) HTN Continue metoprolol and losartan. 7) pulmonary hypertension Continue sildenafil. 8) BPH Continue Proscar and Cardura. 9) hyperlipidemia Continue statin. DVT prophylaxis - Heparin Patient seen by Mahesh Canales PA-C, under the supervision of Dr. Conrad. Time spent on patient care: 10 minutes. Documented by User: Dr. Nick Conrad DO 01/29/22 13:22 Subjective Subjective Feeling much better at this time. Had alcoholic pancreatitis moves about a year ago when he was down in [place]. Objective Data Lab / Micro Data Result Diagrams: 01/29/22 05:52 01/29/22 05:52 Physical Exam Const alert and no apparent distress Resp normal respiratory effort Cardio regular rate, regular rhythm, S1 normal heart sound and S2 normal heart sound GI normal to inspection, nondistended, normoactive bowel sounds, soft to palpation, non-tender and non-distended Extremity normal to inspection Assessment & Plan Assessment/Plan (1) Acute alcoholic pancreatitis: PLAN: Patient seen and examined independently. Data and vitals reviewed. I agree with the above note by the physician water quality assistant. 1. acute alcoholic pancreatitis Clinically improved Patient states that he drinks 6-8 drinks per day. Continue with IV fluids Advance diet Gallbladder ultrasound performed to evaluate for any choledocholithiasis which would seem unlikely in the patient's history but will evaluate that. Check fasting lipid panel to rule out hypertriglyceridemia induced pancreatitis 2. Alcohol abuse When he had alcoholic pancreatitis before he was able to quit for several weeks and did fine. Never sought treatment for that alcohol withdrawal afterwards. Patient seems interested in counseling patient will receive information prior to being discharged so that he could potentially follow-up with someone. I encouraged him to speak with someone in regards to his alcohol use disorder to help him maintain sobriety. Currently on phenobarbital and not going to any acute alcohol withdrawal symptoms at this time. Continue thiamine and folate I did very lengthy conversation with he and his significant other about prolonged alcohol use and chronic pancreatitis work if he were to continue to drink that he would require pancreatic enzyme replacements and may require being on insulin and altogether. Explained the process of his pancreas being essentially fried out over chronic inflammation from chronic alcohol abuse. I advised complete cessation. Patient seemed open to completely quitting alcohol with the description. 3 clarification, patient does not have pulmonary hypertension least not formally diagnosed. Patient is only on sildenafil for erectile dysfunction. So patient will not be receiving sildenafil once in the hospital. Greater than 30minutes spent at bedside discussing with the patient and his significant other about pancreatitis and of the relationship with alcohol and also explaining long-term potential complications with prolonged use. Also discussing with about outpatient counseling for alcohol withdrawal. Did mention that people can quit on her own but expressed the difficulty of doing that on their own but encouraged counseling least for short period of time. Patient seems amenable to that at this time. Patient also reviewing his data. Charges/Coding Visit Charges Inpatient E&M: 03167 Subs Hosp L3
[2022-01-29 13:26] LABS: Pathologist Review Reviewed
--- NOTE | 2022-01-29 15:48 | CHAPLAIN ---
Type of Pastoral Visit _x__ Initial Visit ___ Follow-up Visit ___ On-call Visit ___ General Patient Visit ___ Spiritual Assessment ___ Family Conference ___ Bereavement ___ Rapid Response ___ Code Blue ___ Other (describe below) Pastoral Care Referral From _x__ Patient ___ Family ___ Nurse ___ Physician ___ Program Coordinator For Residence Life ___ Intake Nurse ___ Other (describe below) Sacrament/Intervention _x__ Active listening ___ Anointing ___ Yazidi ___ Bereavement ___ Communion ___ Ynes exploration ___ _x__ Life review _x__ Prayer ___ Reconciliation ___ Sacrament of Sick _x__ Supportive presence ___ Wedding ___ Other (describe below) Pastoral Comments patient talks about changes for his life and the impact of his recent marriage and new family; pt welcomes prayer
[2022-01-29] MEDS: Atorvastatin Calcium 40 MG Tablet PO (22:25)
[2022-01-30] VITALS (17 sets, daily range): BP systolic 117–147; BP diastolic 52–82; PULSE 89–119; RESP 16–24; TEMP 36.7–37.4; O2SAT 90–99
[2022-01-30] MEDS: Phenobarbital 32.4 MG Tablet 64.8 MG PO ×4 (00:31→16:06)
[2022-01-30] MEDS: 0.9% Normal Saline 1,000 ML 175 ML IV ×4 (04:11→21:00)
[2022-01-30] MEDS: Morphine 4 MG/ML Syringe IV (04:24)
[2022-01-30 05:32] LABS: Absolute Lymphocyte Count 1.12 X10^3/uL (0.83-4.51); Absolute Neutrophil Count 15.5 X10^3/uL (2.0-7.7); Basophil# 0.05 X10^3/uL; Basophil% 0.3 % (0-1); Eosinophil# 0.01 X10^3/uL; Eosinophils% 0.1 % (0-5); Hematocrit 35.6 % (40-54); Hemoglobin 11.8 g/dL (13.0-16.5); Lymphocyte # 1.12 X10^3/ul (0.83-4.51); Mean Corp Hgb Conc 33.1 g/dL (32-36); Mean Corpuscular Hgb 31.6 pg (27.0-32.0); Mean Corpuscular Volume 95.2 fL (80-94); Mean Platelet Vol. 9.3 fl (6.2-12.0); Monocyte# 1.71 X10^3/uL; Monocyte% 9.2 % (0-10); NRBC Flagged by Analyzer 0 % (0-5); Neutrophil % 83.2 % (47-70); POSITIVE DIFFERENTIAL YES; POSITIVE MORPHOLOGY YES; Platelet Count 186 K/mm3 (150-450); RBC Distribution Width CV 12.9 % (11.6-14.6); RBC Distribution Width SD 45.5 fl (35.1-43.9); Red Blood Count 3.74 M/mm3 (4.6-6.2); White Blood Count 18.6 K/mm3 (4.4-11.0)
[2022-01-30 05:55] LABS: Differential Indicated SCAN CRITERIA MET
[2022-01-30 05:56] LABS: Differential Comment SCANNED
[2022-01-30 06:15] LABS: Anion Gap 7 (5-15); BUN 29 mg/dL (7-18); BUN/Creat Ratio 12.1 RATIO (10-20); Chloride 99 mmol/L (98-107); EST Glomerular Filtration Rate 30 mL/min (>60); Est Glom Filt Rate - Afr Amer 36 mL/min (>60); Estimated Creatinine Clearance 33.14 ml/min; Glucose 134 mg/dL (74-106); Potassium 4.3 mmol/L (3.5-5.1); Sodium Level 127 mmol/L (136-145)
--- NOTE | 2022-01-30 07:01 | US_ITS ---
STUDY: RENAL ULTRASOUND - COMPLETE REASON FOR EXAM: Male, 57 years old. EZE TECHNIQUE: Ultrasound evaluation of the kidneys was performed with real-time and static reid-scale imaging. COMPARISON: None. FINDINGS: RIGHT KIDNEY: Normal location of the right kidney, which is normal in size. The right kidney measures 13.5 x 7.6 cm. There is a normal cortex of the right kidney. The renal cortex measures 2.9 cm. There is no right renal mass or cyst. There are no right renal calculi. There is no right hydronephrosis. DISTAL RIGHT URETER: There is non-visualization of the distal right ureter. There is no demonstrated right ureterovesical junction calculus. There is no demonstrated right ureteral jet. LEFT KIDNEY: Normal location of the left kidney, which is normal in size. The left kidney measures 12.3 x 7.7 cm. There is a normal cortex of the left kidney. The renal cortex measures 3.2 cm. There is no left renal mass or cyst. There are no left renal calculi. There is no left hydronephrosis. DISTAL LEFT URETER: There is non-visualization of the distal left ureter. There is no demonstrated left ureterovesical junction calculus. There is no demonstrated left ureteral jet. AORTA: There is obscuration of the abdominal aorta by overlying bowel gas I.V.C.: The IVC is obscured. BLADDER: The distended urinary bladder has a volume of 38 ml. There is a normal wall thickness of the distended urinary bladder. There is no demonstrated mass within the urinary bladder. There are no demonstrated bladder calculi. US/Kidney and Bladder IMPRESSION: There are no acute findings. Electronically Signed: Nate Sandoval MD at 8:51 EDT ,
[2022-01-30 08:53] LABS: Anion Gap 7 (5-15); BUN 29 mg/dL (7-18); BUN/Creat Ratio 10.9 RATIO (10-20); Calcium,Total 7.9 mg/dL (8.5-10.1); Chloride 99 mmol/L (98-107); Creatinine, Serum 2.66 mg/dL (0.70-1.30); EST Glomerular Filtration Rate 26 mL/min (>60); Est Glom Filt Rate - Afr Amer 32 mL/min (>60); Glucose 126 mg/dL (74-106); Potassium 4.4 mmol/L (3.5-5.1); Sodium Level 128 mmol/L (136-145)
[2022-01-30] MEDS: Finasteride 5 MG Tablet PO (09:06)
[2022-01-30] MEDS: Doxazosin 4 MG Tablet PO (09:07)
[2022-01-30] MEDS: Thiamine Hydrochloride 100 MG Tablet PO ×2 (09:07→16:08)
[2022-01-30] MEDS: Metoprolol Tartrate 25 MG Tablet PO ×2 (09:07→20:58)
[2022-01-30] MEDS: Multivitamins,Ther W-Minerals Tablet 1 TABLET PO (09:08)
[2022-01-30] MEDS: Folic Acid 1 MG Tablet PO (09:08)
[2022-01-30] MEDS: busPIRone 5 MG Tablet 10 MG PO ×2 (09:08→20:58)
[2022-01-30] MEDS: Heparin Injection (Vial) 5,000 UNIT/ML VIAL 5000 UNIT SC ×2 (09:09→21:00)
--- NOTE | 2022-01-30 10:51 | RAD_ITS ---
EXAM: XR CHEST, 1 VIEW CLINICAL INDICATION: shortness of breath Underinflation of the lungs with consolidation at the left lung base and obscured visualization of the left hemidiaphragm, new from prior exams, this may be due to atelectasis considering the pulmonary hypoinflation. TECHNIQUE: Frontal view of the chest. This report was created using [employer] report generation technology. COMPARISON: Multiple prior exams, most recent September 17, 2020, oldest May 25, 2013. FINDINGS: LUNGS AND PLEURAL SPACES: Unremarkable. No consolidation or edema. No pneumothorax. No effusion. HEART: Unremarkable. Cardiac silhouette not enlarged. MEDIASTINUM: Central airways and mediastinal contour are unremarkable. BONES/JOINTS: Unremarkable. SOFT TISSUES: Unremarkable. RAD/Chest 1 View (Portable) IMPRESSION: Pulmonary hypoinflation bilaterally with new consolidation at the left retrocardiac lung obscuring visualization of the left hemidiaphragm. Atelectasis versus infiltrate. Electronically Signed: Melly Bravo MD at 23:24 EDT ,
--- NOTE | 2022-01-30 11:00 | PCM.PN.HOSP ---
Documented by User: Mahesh DIXON 01/30/22 12:38 Subjective Subjective Patient is a 57-year-old male currently resting in bed, alert and orient x3. Patient reports tolerating his full liquid diet well, however does not feel comfortable enough to touch transition to full liquid diet at this time. Objective Data Objective Data Vital Signs: Vital Signs Temp Pulse Resp BP Pulse Ox 98.0 F 109 H 18 137/61 H 98 01/30/22 08:45 01/30/22 09:07 01/30/22 08:45 01/30/22 08:45 01/30/22 08:45 Oxygen Flow Rate (L/min) 2 Oxygen Delivery Method Nasal Cannula Weight: 222 lb 7.143 oz Body Mass Index (BMI) 32.8 Intake & Output: Intake and Output for Last 24 Hours 01/28/22 01/29/22 01/30/22 23:59 23:59 23:59 Intake Total 1735 / 1735 3840.42 / 3840.42 1271.25 / 1271.25 Balance 1735 / 1735 3840.42 / 3840.42 1271.25 / 1271.25 Lab / Micro Data Result Diagrams: 01/30/22 05:02 01/30/22 08:10 Labs: Laboratory Results - last 24 hr 01/28/22 13:21: Diff Path Review Reviewed 01/30/22 05:02: WBC 18.6 H, RBC 3.74 L, Hgb 11.8 L, Hct 35.6 L, MCV 95.2 H, MCH 31.6, MCHC 33.1, RDW Std Deviation 45.5 H, RDW Coeff of [place] 12.9, Plt Count 186, MPV 9.3, Immature Gran % (Auto) 1.200 H, Neut % (Auto) 83.2 H, Lymph % (Auto) 6.0 L, [place] % (Auto) 9.2, Eos % (Auto) 0.1, Baso % (Auto) 0.3, Absolute Neuts (auto) 15.5 H, Absolute Lymphs (auto) 1.12, Nucleated RBC % 0, Differential Comment SCANNED, Diff Path Review January01/30/22 05:02: Sodium 127 L, Potassium 4.3, Chloride 99, Carbon Dioxide 21.0, Anion Gap 7, BUN 29 H, Creatinine 2.40 H, Estim Creat Clear Calc 33.14, Est GFR (MDRD) Af Amer 36 L, Est GFR (MDRD) Non-Af 30 L, BUN/Creatinine Ratio 12.1, Glucose 134 H, Calcium 8.0 L 01/30/22 08:10: Sodium 128 L, Potassium 4.4, Chloride 99, Carbon Dioxide 22.0, Anion Gap 7, BUN 29 H, Creatinine 2.66 H, Estim Creat Clear Calc 29.90, Est GFR (MDRD) Af Amer 32 L, Est GFR (MDRD) Non-Af 26 L, BUN/Creatinine Ratio 10.9, Glucose 126 H, Calcium 7.9 L Radiography Diagnostic Testing: Radiology Impression Gallbladder Ultrasound 01/29/22 09:59 IMPRESSION: Borderline hepatomegaly. Fatty infiltration of the liver. Diffuse enlargement of the pancreas with decreased echotexture. Electronically Signed: Aleksandr Adames MD at 13:27 EDT , Renal Ultrasound 01/30/22 07:01 IMPRESSION: There are no acute findings. Electronically Signed: Nate Sandoval MD at 8:51 EDT , Physical Exam Const alert, oriented x3 and no apparent distress HEENT head/scalp atraumatic and moist oral mucous membranes Head and Scalp: normocephalic Eyes PERRL, EOMs intact bilaterally and conjunctivae normal Neck no lymphadenopathy, supple and no JVD Resp normal respiratory effort, no retractions and no use of accessory muscles Cardio regular rhythm and no JVD Rate: tachycardic GI non-tender Inspection: abdominal distention Palpation: firm Extremity normal to inspection, full ROM and no clubbing, cyanosis or edema Skin no rashes or lesions noted, no wounds and skin turgor normal Neuro CN's II-XII intact bilaterally Psych affect normal Assessment & Plan Assessment/Plan (1) Acute kidney injury: (2) Acute alcoholic pancreatitis: (3) Alcohol abuse: (4) Alcohol use disorder: PLAN: Day 2 Discharge planning: To discharge home when medically ready. 1) Acute recurrent pancreatitis secondary to chronic alcoholism. Amylase and lipase elevated at 1472 and 24,861 respectively on admission. LFTs and alk phos still within normal limits. Patient reports that his abdominal distention is improved from admission, reports tolerating full liquid diet well. We will continue IV fluids and continue full liquid diet and advance as tolerated. 2) acute on chronic alcohol abuse Had lengthy discussion about patient's need to stop drinking completely in order to avoid his recurrent bouts of pancreatitis. Patient voices understanding and was curious about alcohol counseling services on discharge. CIWA-AR scores are 0. We will continue phenobarbital to avoid withdrawal, continue thiamine and folic acid supplementation, as needed Ativan ordered. 3) leukocytosis WBC is currently 18,000, likely reactionary to #1. Slightly improved from yesterday. Patient does not appear septic and is without infectious symptoms at this time. Plan; as above. 4) EZE Creatinine currently 2.66, has continued to rise from admission. Unclear etiology, renal ultrasound without any acute findings and patient has been well-hydrated throughout admission. We will continue IV fluids and continue to monitor, will hold on nephrology consult at this time. 5) tobacco abuse Continue buspirone. 6) HTN Continue metoprolol and losartan. 7) pulmonary hypertension Continue sildenafil. 8) BPH Continue Proscar and Cardura. 9) hyperlipidemia Continue statin. DVT prophylaxis - Heparin Patient seen by Mahesh Canales PA-C, under the supervision of Dr. Conrad. Time spent on patient care: 9 minutes. Documented by User: Dr. Nick Conrad, 01/30/22 13:52 Subjective Subjective Feels well. Tolerating diet. Urinating small amounts. Objective Data Lab / Micro Data Result Diagrams: 01/30/22 05:02 01/30/22 08:10 Physical Exam Const alert and no apparent distress Resp normal respiratory effort, no retractions, no use of accessory muscles and clear to auscultation bilaterally Cardio regular rate, regular rhythm, S1 normal heart sound and S2 normal heart sound GI normal to inspection, nondistended, normoactive bowel sounds, soft to palpation and non-tender GI Narrative: distended. Extremity normal to inspection Psych affect normal Assessment & Plan Assessment/Plan (1) Acute kidney injury: (2) Acute alcoholic pancreatitis: PLAN: Patient seen and examined independently. Data and vitals reviewed. I agree with the above note by the physician assistant food service manager. 1. acute alcoholic pancreatitis Clinically improved Patient states that he drinks 6-8 drinks per day. Continue with IV fluids Advance diet Gallbladder ultrasound performed to evaluate for any choledocholithiasis which would seem unlikely in the patient's history but will evaluate that. Check fasting lipid panel to rule out hypertriglyceridemia induced pancreatitis US negative for choledocholithiasis was asking about pancreatic necrosis. I told her that there is no clear clinical evidence of it at this time, but could not rule out from developing. 2. EZE renal US unremarkable. FENa 0.26%, consistent with prerenal azotemia continue IVF DC losartan Cannot rule out [employer]. If worse tomorrow, consult nephrology 3. Alcohol abuse When he had alcoholic pancreatitis before he was able to quit for several weeks and did fine. Never sought treatment for that alcohol withdrawal afterwards. Patient seems interested in counseling patient will receive information prior to being discharged so that he could potentially follow-up with someone. I encouraged him to speak with someone in regards to his alcohol use disorder to help him maintain sobriety. Currently on phenobarbital and not going to any acute alcohol withdrawal symptoms at this time. Continue thiamine and folate I did very lengthy conversation with he and his significant other about prolonged alcohol use and chronic pancreatitis work if he were to continue to drink that he would require pancreatic enzyme replacements and may require being on insulin and altogether. Explained the process of his pancreas being essentially fried out over chronic inflammation from chronic alcohol abuse. I advised complete cessation. Patient seemed open to completely quitting alcohol with the description. clarification, patient does not have pulmonary hypertension least not formally diagnosed. Patient is only on sildenafil for erectile dysfunction. So patient will not be receiving sildenafil once in the hospital. Greater than 30minutes spent at bedside discussing with the patient and his significant other about pancreatitis and EZE. Charges/Coding Visit Charges Inpatient E&M: 11765 Subs Hosp L3
[2022-01-30 12:09] LABS: Bacteria 0 SEEN /hpf (None Seen); Mucous, Urine 0 SEEN /hpf (<or=2+); Red Blood Cells-Urine 0 SEEN /hpf (0-5); White Blood Cells 0 SEEN /hpf (0-5)
[2022-01-30 12:11] LABS: Color, Urine Yellow (Yellow); Glucose, Dipstick Normal (Normal); Ketone-Dipstick Negative (Negative); Leukocyte Esterase-Dipstick Negative /ul (Negative); Nitrite-Dipstick Negative (Negative); Occult Blood-Urine 25 /ul (Negative); Protein-Dipstick 100 mg/dl (Negative); Urine Bilirubin Dipstick Negative (Negative); Urine Clarity Clear (Clear); Urine Urobilinogen Normal (Normal)
[2022-01-30 12:16] LABS: Squamous Epithelial Cells - UA 0-5 SEEN /hpf (0-5)
[2022-01-30 12:25] LABS: Urine Sodium 19 mmol/L (Not Establ.)
--- NOTE | 2022-01-30 15:58 | CASEMGMT ---
Social Work Note SW received referral for Advanced Directives. SW in to speak with pt. Pt completed Advanced Directives. Pt states that his is coming to [facility] and she would like to complete Advanced Directives as well. SW informed pt that his will need to call Client Account Assistant number to arrange an appointment as an outpatient. SW provided original Advanced Directives back to pt and placed copy on pt's chart. Pt's Ning present in room. SW informed Ning that she will need to call Client Account Assistant number and schedule an appointment to complete Advanced Directives as an outpatient. Ning states understanding. Laura Whittaker STOCKROOM ASSOCIATE, SILK PRESSER
[2022-01-30] MEDS: Atorvastatin Calcium 40 MG Tablet PO (20:58)
[2022-01-30] MEDS: Acetaminophen 500 MG Tablet PO (21:03)
[2022-01-31] VITALS (11 sets, daily range): BP systolic 129–156; BP diastolic 81–98; PULSE 93–113; RESP 18–20; TEMP 36.7–37.1; O2SAT 92–97
[2022-01-31] MEDS: Phenobarbital 32.4 MG Tablet 64.8 MG PO ×3 (00:16→11:58)
[2022-01-31] MEDS: 0.9% Normal Saline 1,000 ML 175 ML IV ×2 (02:12→06:19)
[2022-01-31 06:51] LABS: Anion Gap 9 (5-15); BUN 31 mg/dL (7-18); BUN/Creat Ratio 14.5 RATIO (10-20); Calcium,Total 8.1 mg/dL (8.5-10.1); Chloride 103 mmol/L (98-107); Cholesterol 68 mg/dL (200); Creatinine, Serum 2.14 mg/dL (0.70-1.30); EST Glomerular Filtration Rate 34 mL/min (>60); Est Glom Filt Rate - Afr Amer 41 mL/min (>60); Estimated Creatinine Clearance 37.17 ml/min; Glucose 117 mg/dL (74-106); High Density Lipoprotein 19 mg/dL; Sodium Level 130 mmol/L (136-145); Triglycerides 100 mg/dL; Very Low Density Lipoprotein 20 mg/dL (5-40)
[2022-01-31] MEDS: Finasteride 5 MG Tablet PO (08:36)
[2022-01-31] MEDS: Folic Acid 1 MG Tablet PO (08:36)
[2022-01-31 08:37] LABS: Absolute Neutrophil Count 13.7 X10^3/uL (2.0-7.7); Basophil# 0.04 X10^3/uL; Basophil% 0.2 % (0-1); Eosinophil# 0.01 X10^3/uL; Eosinophils% 0.1 % (0-5); Hematocrit 34.1 % (40-54); Hemoglobin 11.4 g/dL (13.0-16.5); Lymphocyte % 6.5 % (19-41); Mean Corp Hgb Conc 33.4 g/dL (32-36); Mean Corpuscular Hgb 32.1 pg (27.0-32.0); Mean Corpuscular Volume 96.1 fL (80-94); Monocyte# 1.73 X10^3/uL; Monocyte% 10.3 % (0-10); NRBC Flagged by Analyzer 0 % (0-5); Neutrophil # 13.66 X10^3/uL (2.7-7.7); Neutrophil % 81.1 % (47-70); POSITIVE DIFFERENTIAL YES; POSITIVE MORPHOLOGY YES; Platelet Count 215 K/mm3 (150-450); RBC Distribution Width CV 12.3 % (11.6-14.6); RBC Distribution Width SD 43.1 fl (35.1-43.9); Red Blood Count 3.55 M/mm3 (4.6-6.2); White Blood Count 16.8 K/mm3 (4.4-11.0)
[2022-01-31] MEDS: Metoprolol Tartrate 25 MG Tablet PO (08:37)
[2022-01-31] MEDS: busPIRone 5 MG Tablet 10 MG PO (08:37)
[2022-01-31] MEDS: Thiamine Hydrochloride 100 MG Tablet PO (08:37)
[2022-01-31] MEDS: Heparin Injection (Vial) 5,000 UNIT/ML VIAL 5000 UNIT SC (08:37)
[2022-01-31] MEDS: Multivitamins,Ther W-Minerals Tablet 1 TABLET PO (08:38)
[2022-01-31] MEDS: Doxazosin 4 MG Tablet PO (08:38)
[2022-01-31 08:42] LABS: Differential Indicated SCAN CRITERIA MET
--- NOTE | 2022-01-31 10:31 | PCM.DC ---
Discharge Instructions Diet Discharge Diet: No restrictions Activity Discharge Activity: Return to Normal Activity Weight Bearing Status: Weight bearing as tolerated Dressing / Incision Call your doctor if you observe: Fever of 101 or Higher, Numbness or Tingling, Shortness of breath, Dizziness, Chest pain, Increased palpitations (irregular heartbeat) and Calf discomfort Follow Up Care Please Follow Up With: Primary care provider When: Within the next two weeks. Test Results: Test results from this visit will be discussed in further detail at your follow-up appointment, if applicable. Discharge Plan Admission Admit Date/Time: 01/28/22 15:26 Primary Reason for Your Visit: Abdominal pain Attending Provider: Nick Conrad Primary Care Provider: Srinivas De Souza Consulting Providers: Srinivas Arshad Instructions Additional Instructions / Restrictions: * It is imperative that you cease drinking immediately to preserve your Pancreatic function and prevent reoccurrence of your pancreatitis. * You declined alcohol counseling services while in the hospital, there are outpatient options available in [place]. * [facility] behavioral services is local to [place] and can be contacted for assistance. There number is [phone]. * You are clear to return to work January. Discharge Orders/Prescriptions Prescriptions: Continued finasteride 5 MG tablet 5 mg PO DAILY RF: 0 atorvastatin 40 MG tablet 40 mg PO DAILY Qty: 30 RF: 0 losartan 25 mg tablet 25 mg PO DAILY RF: 0 buspirone 7.5 mg tablet 75 mg PO TID RF: 0 lorazepam 1 mg tablet 1 mg PO DAILY PRN PRN (Reason: Anxiety) RF: 0 metoprolol tartrate 25 mg tablet 25 mg PO BID RF: 0 sildenafil (pulm.hypertension) 20 mg tablet 20 mg PO DAILY RF: 0 Referrals / Follow Up: Srinivas De Souza DO [Primary Care Provider] - Within 2 Weeks Disposition Disposition (needs filled in before D/C Order can be placed): Home, Self Care
[2022-01-31 13:25] LABS: Anion Gap 8 (5-15); BUN 29 mg/dL (7-18); BUN/Creat Ratio 15.7 RATIO (10-20); Calcium,Total 8.3 mg/dL (8.5-10.1); Chloride 102 mmol/L (98-107); Creatinine, Serum 1.85 mg/dL (0.70-1.30); EST Glomerular Filtration Rate 40 mL/min (>60); Est Glom Filt Rate - Afr Amer 48 mL/min (>60); Estimated Creatinine Clearance 42.99 ml/min; Glucose 135 mg/dL (74-106); Potassium 4.2 mmol/L (3.5-5.1); Sodium Level 132 mmol/L (136-145)
--- NOTE | 2022-01-31 13:52 | DS.PCM_ITS ---
Documented by User: Mahesh DIXON 01/31/22 14:23 Providers Date of Admission: 01/28/22 Date of Discharge: 01/31/22 Primary Care Physician: Dr. Srinivas De Souza DO Reason For Visit: RECURRENT ALCOHOLIC PANCREATITIS Diagnosis Discharge Diagnosis (1) Acute kidney injury: Status: Acute Code(s): N17.9 - Acute kidney failure, unspecified (2) Acute alcoholic pancreatitis: Status: Acute Code(s): K85.20 - Alcohol induced acute pancreatitis without necrosis or infection Medications at Discharge Home Medications finasteride 5 mg PO DAILY 08/11/17 atorvastatin 40 mg PO DAILY #30 tab 08/12/17 buspirone 75 mg PO TID 01/28/22 lorazepam 1 mg PO DAILY PRN PRN 01/28/22 losartan 25 mg PO DAILY 01/28/22 metoprolol tartrate 25 mg PO BID 01/28/22 sildenafil (pulm.hypertension) 20 mg PO DAILY 01/28/22 Hospital Course Summary of Care Provided Minutes Spent on Discharge: 20 Hospital Course: Patient is a 57-year-old male who was admitted to [facility] on 01/28/2022 for evaluation and management of acute recurrent pancreatitis secondary to chronic alcoholism. Hospital course and management as below. 1) Acute recurrent pancreatitis secondary to chronic alcoholism. Amylase and lipase elevated at 1472 and 24,861 respectively on admission. Gallbladder ultrasound was obtained and demonstrated borderline hepatomegaly, fatty infiltration of liver and diffuse enlargement of the pancreas. No obstructing gallstones were noted. Patient was given IV fluids and supportive treatments throughout admission. Patient tolerated slow advancement of diet w ell and noted no problems with regular diet on discharge. 2) acute on chronic alcohol abuse On day of admission patient noted drinking about 6-8 beers daily with a night cap of wine most evenings. Patient denied wanting any alcoholic counseling services while admitted. Patient was given phenobarbital with thiamine/folic acid supplementation throughout admission to prevent withdrawal. Had lengthy discussion about patient's need to stop drinking completely in order to avoid his recurrent bouts of pancreatitis as well as preserve his pancreatic function. Patient voices understanding and was curious about alcohol counseling services on discharge. Patient was provided phone number for [facility] behavioral services to follow-up as an outpatient. 3) leukocytosis WBCs were 16,000 on day of discharge, improved over course of admission. Throughout course of admission patient was not septic and was without any infectious symptoms. 4) EZE On day of discharge creatinine was 1.85. Unclear etiology as to why patient's creatinine increased throughout course. Renal ultrasound was obtained and did not demonstrate any acute renal abnormality. No nephrology consult obtained throughout admission given improvement of EZE. 5) tobacco abuse Continue buspirone. 6) HTN Continue metoprolol and losartan. 7) pulmonary hypertension Continue sildenafil. 8) BPH Continue Proscar and Cardura. 9) hyperlipidemia Patient seen by Mahesh Canales PA-C, under the supervision of Dr. Conrad. Time spent on patient care: 20 minutes. Physical Exam Narrative Patient is a 57-year-old male comfortably resting in bed, alert and orient x3. Patient reports significant improvement in his abdominal pain and N/V/D. Reports tolerating the advancement of his diet well. Const alert, oriented x3 and no apparent distress HEENT normocephalic, head/scalp atraumatic and hearing grossly normal bilaterally Eyes PERRL, EOMs intact bilaterally and conjunctivae normal Neck no lymphadenopathy, supple and no JVD Resp normal respiratory effort, no retractions and no use of accessory muscles Cardio regular rate, regular rhythm and no JVD GI Inspection: abdominal distention Palpation: firm Extremity normal to inspection, full ROM and no clubbing, cyanosis or edema Skin no rashes or lesions noted, no wounds and skin turgor normal Neuro CN's II-XII intact bilaterally Psych affect normal Weight / BMI Weight Weight: 222 lb 7.143 oz Body Mass Index (BMI) 32.8 ABG / Lab / Microbiology Data Result Diagrams: 01/31/22 05:00 01/31/22 12:24 Laboratory: Laboratory Results - last 24 hr 01/31/22 05:00: Sodium 130 L, Potassium 4.0, Chloride 103, Carbon Dioxide 18.0 L , Anion Gap 9, BUN 31 H, Creatinine 2.14 H, Estim Creat Clear Calc 37.17, Est GFR (MDRD) Af Amer 41 L, Est GFR (MDRD) Non-Af 34 L, BUN/Creatinine Ratio 14.5, Glucose 117 H, Calcium 8.1 L, Triglycerides 100, Cholesterol 68, LDL Cholesterol 29, VLDL Cholesterol 20, HDL Cholesterol 19 L 01/31/22 05:00: WBC 16.8 H, RBC 3.55 L, Hgb 11.4 L, Hct 34.1 L, MCV 96.1 H, MCH 32.1 H, MCHC 33.4, RDW Std Deviation 43.1, RDW Coeff of [place] 12.3, Plt Count 215, MPV 10.0, Immature Gran % (Auto) 1.800 H, Neut % (Auto) 81.1 H, Lymph % (Auto) 6.5 L, [place] % (Auto) 10.3 H, Eos % (Auto) 0.1, Baso % (Auto) 0.2, Absolute Neuts (auto) 13.7 H, Absolute Lymphs (auto) 1.10, Nucleated RBC % 0 01/31/22 12:24: Sodium 132 L, Potassium 4.2, Chloride 102, Carbon Dioxide 22.0, Anion Gap 8, BUN 29 H, Creatinine 1.85 H, Estim Creat Clear Calc 42.99, Est GFR (MDRD) Af Amer 48 L, Est GFR (MDRD) Non-Af 40 L, BUN/Creatinine Ratio 15.7, Glucose 135 H, Calcium 8.3 L Radiography Diagnostic Testing: Radiology Impression Chest X-Ray 01/30/22 10:51 IMPRESSION: Pulmonary hypoinflation bilaterally with new consolidation at the left retrocardiac lung obscuring visualization of the left hemidiaphragm. Atelectasis versus infiltrate. Electronically Signed: Melly Bravo MD at 23:24 EDT , D/C Instructions Discharge Diet: No restrictions Weight Bearing Status: Weight bearing as tolerated Call your doctor if you observe: Fever of 101 or Higher, Numbness or Tingling, Shortness of breath, Dizziness, Chest pain, Increased palpitations (irregular heartbeat) and Calf discomfort Please Follow Up With: Primary care provider When: Within the next two weeks. Meaningful Use Info Meaningful Use Diagnoses (Choose all that apply): None applicable Discharge Plan Admission Admit Date/Time: 01/28/22 15:26 Primary Reason for Your Visit: Abdominal pain Attending Provider: Nick Conrad Primary Care Provider: Srinivas De Souza Consulting Providers: Srinivas Arshad Instructions Additional Instructions / Restrictions: * It is imperative that you cease drinking immediately to preserve your Pancreatic function and prevent reoccurrence of your pancreatitis. * You declined alcohol counseling services while in the hospital, there are outpatient options available in [place]. * [facility] behavioral services is local to [place] and can be contacted for assistance. There number is [phone]. * You are clear to return to work January. Discharge Orders/Prescriptions Prescriptions: Continued finasteride 5 MG tablet 5 mg PO DAILY RF: 0 atorvastatin 40 MG tablet 40 mg PO DAILY Qty: 30 RF: 0 losartan 25 mg tablet 25 mg PO DAILY RF: 0 buspirone 7.5 mg tablet 75 mg PO TID RF: 0 lorazepam 1 mg tablet 1 mg PO DAILY PRN PRN (Reason: Anxiety) RF: 0 metoprolol tartrate 25 mg tablet 25 mg PO BID RF: 0 sildenafil (pulm.hypertension) 20 mg tablet 20 mg PO DAILY RF: 0 Referrals / Follow Up: Srinivas De Souza DO [Primary Care Provider] - Within 2 Weeks Disposition Disposition (needs filled in before D/C Order can be placed): Home, Self Care Documented by User: Dr. Nick Conrad DO 01/31/22 14:51 Providers Date of Admission: 01/28/22 Reason For Visit: RECURRENT ALCOHOLIC PANCREATITIS Medications at Discharge Home Medications finasteride 5 mg PO DAILY 08/11/17 atorvastatin 40 mg PO DAILY #30 tab 08/12/17 buspirone 75 mg PO TID 01/28/22 lorazepam 1 mg PO DAILY PRN PRN 01/28/22 losartan 25 mg PO DAILY 01/28/22 metoprolol tartrate 25 mg PO BID 01/28/22 sildenafil (pulm.hypertension) 20 mg PO DAILY 01/28/22 Hospital Course Summary of Care Provided Minutes Spent on Discharge: 32 Hospital Course: 57-year-old male presents with abdominal pain. Found to have acute pancreatitis secondary to alcohol consumption. Developed acute kidney injury. Parameters are consistent with prerenal azotemia as the patient was continued IV fluids and creatinine has improved. Patient strongly advised to discontinue alcohol altogether. Patient states that he was Will comply but his , has been present at bedside, appears skeptical. Patient was provided information to contact in regards to counseling services for alcohol addiction. 1. acute alcoholic pancreatitis Clinically improved Patient states that he drinks 6-8 drinks per day. Continue with IV fluids Advance diet Gallbladder ultrasound performed to evaluate for any choledocholithiasis which would seem unlikely in the patient's history but will evaluate that. Check fasting lipid panel to rule out hypertriglyceridemia induced pancreatitis US negative for choledocholithiasis was asking about pancreatic necrosis. I told her that there is no clear clinical evidence of it at this time, but could not rule out from developing. 2. EZE improving renal US unremarkable. FENa 0.26%, consistent with prerenal azotemia 3. Alcohol abuse When he had alcoholic pancreatitis before he was able to quit for several weeks and did fine. Never sought treatment for that alcohol withdrawal afterwards. Patient seems interested in counseling patient will receive information prior to being discharged so that he could potentially follow-up with someone. I encouraged him to speak with someone in regards to his alcohol use disorder to help him maintain sobriety. Currently on phenobarbital and not going to any acute alcohol withdrawal symptoms at this time. Continue thiamine and folate I did very lengthy conversation with he and his significant other about prolonged alcohol use and chronic pancreatitis work if he were to continue to drink that he would require pancreatic enzyme replacements and may require being on insulin and altogether. Explained the process of his pancreas being essentially fried out over chronic inflammation from chronic alcohol abuse. I advised complete cessation. Patient seemed open to completely quitting alcohol with the description. clarification, patient does not have pulmonary hypertension least not formally diagnosed. Patient is only on sildenafil for erectile dysfunction. So patient will not be receiving sildenafil once in the hospital. Physical Exam Const alert and no apparent distress Resp normal respiratory effort, no retractions and no use of accessory muscles Cardio regular rate, regular rhythm, S1 normal heart sound and S2 normal heart sound GI normal to inspection, nondistended, normoactive bowel sounds, soft to palpation, non-tender and non-distended Neuro Sensorium / Orientation: awake, alert and oriented to person ABG / Lab / Microbiology Data Result Diagrams: 01/31/22 05:00 01/31/22 12:24 Discharge Plan Admission Admit Date/Time: 01/28/22 15:26 Primary Reason for Your Visit: Abdominal pain Attending Provider: Nick Conrad Primary Care Provider: Srinivas De Souza Consulting Providers: Srinivas Arshad Instructions Additional Instructions / Restrictions: * It is imperative that you cease drinking immediately to preserve your Pancreatic function and prevent reoccurrence of your pancreatitis. * You declined alcohol counseling services while in the hospital, there are outpatient options available in [place]. * [facility] services is local to [place] and can be contacted for assistance. There number is [phone]. * You are clear to return to work Tuesday, Feb 03 2022. Discharge Orders/Prescriptions Prescriptions: Continued finasteride 5 MG tablet 5 mg PO DAILY RF: 0 atorvastatin 40 MG tablet 40 mg PO DAILY Qty: 30 RF: 0 losartan 25 mg tablet 25 mg PO DAILY RF: 0 buspirone 7.5 mg tablet 75 mg PO TID RF: 0 lorazepam 1 mg tablet 1 mg PO DAILY PRN PRN (Reason: Anxiety) RF: 0 metoprolol tartrate 25 mg tablet 25 mg PO BID RF: 0 sildenafil (pulm.hypertension) 20 mg tablet 20 mg PO DAILY RF: 0 Referrals / Follow Up: Srinivas De Souza DO [Primary Care Provider] - Within 2 Weeks Disposition Disposition (needs filled in before D/C Order can be placed): Home, Self Care Charges/Coding Visit Charges Inpatient E&M: 52911 Disch Hosp
[2022-02-01 15:12] LABS: Pathologist Review Reviewed
[2022-02-01 15:15] LABS: Pathologist Review Reviewed
== END 2022-01-31 14:09 | disposition home or self-care (01) | DRG 439 ==
LOC: ED 15:24 → MS3 15:45
PROVIDERS: Nurse Practitioner; Physician Assistant; Admitting Provider Internal Medicine; Emergency Provider Emergency Medicine; PCP Family Medicine
DX: K85.20 Alcohol induced acute pancreatitis without necrosis or infection (principal); N17.9 Acute kidney failure, unspecified; F10.288 Alcohol dependence with other alcohol-induced disorder; E87.1 Hypo-osmolality and hyponatremia; I27.20 Pulmonary hypertension, unspecified; K70.0 Alcoholic fatty liver; I10 Essential (primary) hypertension; E78.5 Hyperlipidemia, unspecified; N52.9 Male erectile dysfunction, unspecified; N40.0 Benign prostatic hyperplasia without lower urinary tract symptoms; F17.210 Nicotine dependence, cigarettes, uncomplicated; K86.89 Other specified diseases of pancreas; R00.0 Tachycardia, unspecified; Z79.899 Other long term (current) drug therapy
CPT/HCPCS: 36415; 71045; 74176; 76705; 76770; 80048; 80061; 80076; 81001; 82150; 82570; 83690; 84300; 85025; 87040; 93005; 99284; J7030; A4216; J2405

== ENCOUNTER → 2022-05-28 | Outpatient (CLI) | payer OTHER, SELFPAY ==
[2022-05-28 10:25] LABS: Hemoglobin A1c 6.3 % (3.8-5.6)
[2022-05-28 10:51] LABS: AST(SGOT) 36 U/L (15-37); Alanine Aminotransfer ALT/SGPT 43 U/L (16-61); Alkaline Phosphatase 103 U/L (45-117); Anion Gap 6 (5-15); BUN 23 mg/dL (7-18); BUN/Creat Ratio 21.9 RATIO (10-20); Chloride 102 mmol/L (98-107); Creatinine, Serum 1.05 mg/dL (0.70-1.30); EST Glomerular Filtration Rate 77 mL/min (>60); Est Glom Filt Rate - Afr Amer 93 mL/min (>60); Globulin 4.2 g/dL (2.2-4.2); Glucose 134 mg/dL (74-106); Potassium 4.2 mmol/L (3.5-5.1); Protein, Total 8.2 g/dL (6.4-8.2); Sodium Level 136 mmol/L (136-145)
== END | disposition home or self-care (01) ==
LOC: MTLAB 08:06
PROVIDERS: PCP Family Medicine; Referring Provider Family Medicine; Visit Provider Family Medicine
DX: I10 Essential (primary) hypertension (principal); R73.01 Impaired fasting glucose; Z12.5 Encounter for screening for malignant neoplasm of prostate
CPT/HCPCS: 36415; 80053; 83036

== ENCOUNTER → 2022-09-15 | Outpatient (CLI) | payer OTHER, SELFPAY ==
--- NOTE | 2022-09-15 19:09 | RAD_ITS ---
EXAM: XR CHEST, 2 VIEWS CLINICAL INDICATION: LLL CRACKLES/RECENT ILLNESS TECHNIQUE: Frontal and lateral views of the chest. This report was created using [employer] report generation technology. COMPARISON: Previous chest radiographs of 01/30/2022 and 09/17/2020. FINDINGS: LUNGS AND PLEURAL SPACES: Improved inspiratory effort. No consolidation or edema. No peribronchial cuffing. No pneumothorax. No effusion. The previously noted retrocardiac consolidation has resolved. HEART: Upper normal heart size with normal pulmonary vasculature. MEDIASTINUM: Thoracic aorta is minimally elongated. No mediastinal widening or hilar enlargement. Trachea is midline. BONES/JOINTS: Thoracic degenerative spurring. No acute osseous abnormality. SOFT TISSUES: Unremarkable. RAD/Chest PA and Lateral IMPRESSION: No radiographic evidence of acute cardiopulmonary disease; no pneumonia. Electronically Signed: Aureliano Menchaca MD at 7:33 EST ,
== END | disposition home or self-care (01) ==
LOC: MTRAD 16:04
PROVIDERS: PCP Family Medicine; Referring Provider Family Medicine; Visit Provider Family Medicine
DX: R05.9 Cough, unspecified (principal)
CPT/HCPCS: 71046

== ENCOUNTER → 2023-03-04 | Outpatient (CLI) | payer OTHER, SELFPAY ==
[2023-03-04 10:10] LABS: Absolute Lymphocyte Count 2.17 X10^3/uL (0.83-4.51); Absolute Neutrophil Count 3.6 X10^3/uL (2.0-7.7); Basophil# 0.04 X10^3/uL; Basophil% 0.6 % (0-1); Eosinophil# 0.09 X10^3/uL; Eosinophils% 1.3 % (0-5); Hematocrit 38.9 % (40-54); Hemoglobin 12.8 g/dL (13.0-16.5); Lymphocyte # 2.17 X10^3/ul (0.83-4.51); Lymphocyte % 32.5 % (19-41); Mean Corp Hgb Conc 32.9 g/dL (32-36); Mean Corpuscular Hgb 31.8 pg (27.0-32.0); Mean Corpuscular Volume 96.8 fL (80-94); Mean Platelet Vol. 9.7 fl (6.2-12.0); Monocyte# 0.78 X10^3/uL; Monocyte% 11.7 % (0-10); NRBC Flagged by Analyzer 0 % (0-5); Neutrophil # 3.56 X10^3/uL (2.7-7.7); Neutrophil % 53.5 % (47-70); Platelet Count 297 K/mm3 (150-450); RBC Distribution Width CV 13.7 % (11.6-14.6); RBC Distribution Width SD 49.1 fl (35.1-43.9); Red Blood Count 4.02 M/mm3 (4.6-6.2); White Blood Count 6.7 K/mm3 (4.4-11.0)
[2023-03-04 10:26] LABS: Microalbumin:Creatinine Ratio 120.2 mg/g CRE (<30 mg/g CRE)
[2023-03-04 10:42] LABS: ALB/GLOB Ratio 1.1 RATIO (0.9-2.4); AST(SGOT) 26 U/L (15-37); Alanine Aminotransfer ALT/SGPT 42 U/L (16-61); Alkaline Phosphatase 91 U/L (45-117); Anion Gap 11 (5-15); BUN 21 mg/dL (7-18); BUN/Creat Ratio 22.1 RATIO (10-20); Calcium,Total 9.1 mg/dL (8.5-10.1); Chloride 105 mmol/L (98-107); Cholesterol 155 mg/dL (200); Creatinine, Serum 0.95 mg/dL (0.70-1.30); EST Glomerular Filtration Rate 86 mL/min (>60); Est Glom Filt Rate - Afr Amer 104 mL/min (>60); Globulin 3.7 g/dL (2.2-4.2); Glucose 108 mg/dL (74-106); High Density Lipoprotein 48 mg/dL; PSA,Total - Annual Screen 0.62 ng/mL (0.00-4.00); Potassium 4.2 mmol/L (3.5-5.1); Protein, Total 7.7 g/dL (6.4-8.2); Sodium Level 141 mmol/L (136-145); Triglycerides 282 mg/dL; Very Low Density Lipoprotein 56 mg/dL (5-40)
[2023-03-04 11:13] LABS: Hemoglobin A1c 6.1 % (3.8-5.6)
== END | disposition home or self-care (01) ==
LOC: MTLAB 07:03
PROVIDERS: PCP Family Medicine; Referring Provider Family Medicine; Visit Provider Family Medicine
DX: Z00.00 Encounter for general adult medical examination without abnormal findings (principal); E11.9 Type 2 diabetes mellitus without complications; Z12.5 Encounter for screening for malignant neoplasm of prostate
CPT/HCPCS: 36415; 80053; 80061; 82043; 82570; 83036; 84153; 85025; G0103

== ENCOUNTER 2023-12-09 08:31 | Day surgery (SDC) | payer OTHER, SELFPAY ==
[2023-12-09 08:48] VITALS: BP 173/98; PULSE 88; RESP 16; TEMP 36.2; O2SAT 98; BMI 32.2
[2023-12-09] MEDS: Lactated Ringers 1,000 ML 15 ML IV (09:02)
--- NOTE | 2023-12-09 09:19 | HP.PCM_ITS ---
HPI - General HPI Narrative UGO KRUSE, is a 58 M who presents for screening colonoscopy. He has never had a colonoscopy in the past. He denies any abdominal pain or blood in the stool. He has no family history of colon cancer. [facility]LY [facility] Medical History (Updated 12/07/23 @ 15:19 by Penelope Peraza) Alcohol use disorder Anxiety BPH (benign prostatic hyperplasia) Former smoker History of echocardiogram History of tobacco use HTN (hypertension) Pancreatitis Prostate disease Wears glasses Home Medications finasteride 5 mg tablet 5 mg PO DAILY PROSTATE 08/11/17 [History Last Taken 01/28/22] atorvastatin 40 mg tablet 40 mg PO DAILY #30 tabs 08/12/17 [Rx Last Taken 01/28/22] buspirone 7.5 mg tablet 7.5 mg PO BID 01/28/22 [History Last Taken 12/09/23] lorazepam 1 mg tablet 1 mg PO DAILY PRN PRN Anxiety 01/28/22 [History Last Taken Unknown] losartan 25 mg tablet 25 mg PO DAILY BP 01/28/22 [History Last Taken 12/09/23] sildenafil (pulm.hypertension) 20 mg tablet 20 mg PO DAILY 01/28/22 [History Last Taken 01/28/22] metoprolol tartrate 25 mg tablet 25 mg PO BID 12/07/23 [History Last Taken 12/09/23] naltrexone 50 mg tablet 50 mg PO DAILY 12/07/23 [History Last Taken Unknown] Allergy/AdvReac Type Severity Reaction Status Date / Time No Known Allergies Allergy Verified 12/09/23 08:46 Surgical History (Updated 12/07/23 @ 15:14 by Penelope Peraza) History of lumbar discectomy Social History (Updated 10/19/23 @ 10:37 by Peggy Giles) household members: spouse housing: house current occupational status: employed Smoking Status: Current every day smoker tobacco type: cigarettes alcohol intake: current alcohol intake frequency: 3 or more drinks per day Alcohol type: beer and wine details: 6-8 beers daily with wine. Past Medical/Surgical History Planned Operation Planned Operative Procedure/s: COLONOSCOPY Previous Hospitalizations/Surgeries HX Hospitalizations: No Any Problems With Anesthesia: No You/Your Family Experience Fever (Hyperthermia) With Anes: No Cholinesterase deficiency: No Cardiovascular Hx Chest Pain within Last 2 months: No Hx of Irregular Heartbeat and/or Afib: No Hx Heart Attack: No Hx Hypertension: Yes Hx Cardiac Surgery/Stents/Etc.: No Hx Pain in Legs when Walking/Leg Cramps: No Respiratory Hx Chronic Obstructive Pulmonary Disease (COPD): No Hx Asthma: No Hx Emphysema: No Hx Sleep Apnea: No Hx Respiratory Tract Infection/Cold (presently): No Do You Snore Loudly (louder than talking or can be heard): No Do You Often Feel Tired/ Fatigued/ Sleepy Dring Daytime?: No Has Anyone Observed You Stop Breathing During Sleep?: No Result (for STOP score): Negative Hx Smoking: Yes Smoking Status: Current every day smoker Gastrointestinal Hx Gastrointestinal Bleed: No Hx Ulcer: No Difficulty Chewing/Swallowing: No Hx Unplanned Weight Loss of 20#: No Neurological Hx Seizures: No Hx Multiple Sclerosis: No Hx Parkinson's Disease: No Does patient have nerve stimulator: No Blood Disorder Hx Hepatitis: No Hx Cirrhosis: No Hx Anemia: No Hx Blood Disorders: No Genitourinary Hx Renal Disease: No Hx Dialysis: No Musculoskeletal Hx Arthritis: No Hx Rheumatoid Arthritis: No Endocrine Hx Diabetes: No Thyroid Disease: No Psycho/Social Hx Substance Use: No Hx Alcohol Use: Yes (A couple beers a day.) Hx Anxiety: Yes Hx Depression: No Hx Dementia: No Miscellaneous Hx Cancer: No Recent Exposure to Contagious Disease: No Allergies No Known Allergies Allergy (Verified 12/09/23 08:46) Maternal: - (Maternal family history of a stroke as well as aneurysm at age 52.) Paternal: Hypertension Discharge Is Pt Admitted From a Intermediate, or a Usp: No Who Could Help: Vital Signs Vital Signs Vital Signs: 12/09/23 08:48 Temperature 97.2 F L Temperature Source Temporal Pulse Rate 88 Respiratory Rate 16 Blood Pressure 173/98 H Blood Pressure Mean 123 Blood Pressure Source Monitor Blood Pressure Position Sitting Blood Pressure Location Left Arm Pulse Ox 98 Oxygen Delivery Method Room Air Weight Weight: 218 lb 4.122 oz Body Mass Index (BMI) 32.2 Physical Exam Const alert and oriented x3 HEENT normocephalic Eyes PERRL Resp normal respiratory effort and normal air movement Cardio regular rate and regular rhythm GI soft to palpation, non-tender and non-distended Extremity normal to inspection Assessment & Plan Assessment/Plan (1) Encounter for screening for malignant neoplasm of colon: PLAN: I explained endoscopy in detail to the patient. I explained the risks including but not limited to stroke or heart attack with anesthesia, perforation of the GI tract, bleeding, infection. I explained that any of these could necessitate further emergency surgery. The patient understands and all questions were answered sufficiently. The patient wishes to proceed with procedure. Erik Perales MD Pager: [facility] [address] [place] [address] [address] [place] [address] Office: Surgery Risks - Colonoscopy Risks Include but are not Limited To: Risks include but are not limited to: Bleeding, perforation requiring further surgery, inability to complete colonoscopy requiring barium enema.
--- NOTE | 2023-12-09 09:45 | COLBX_PTH ---
PATIENT: UGO KRUSE LOC: EN U#:[id number] AGE/SX: 58/M ROOM: RE12/09/[address]: Dr. Erik Perales MD : 1965 BED: DIS: 12/09/2023 SPEC #: [id number] RECD: 12/09/23 10:12 STATUS: GREGORIO AURORA #: [id number] PATRICE: 12/09/23 09:[address]: Erik Perales DEPT: SURGICAL PATHOLOGY RECD BY: Ninfa White ENTERED: 12/09/23 11:52 SP TYPE: COLON BX OTHR DR: Dr. Srinivas De Souza DO Tissues: Descending colon Procedures: Surgery Specimen Level IV HEADER OPERATION: Colonoscopy- open access, polypectomy PRE-OP DIAGNOSIS: Encounter for screening for malignant neoplasm of colon TISSUE SUBMITTED: Descending polyp MICROSCOPIC DIAGNOSIS Descending colon polyp, biopsy; Tubular adenoma. AM/mr 12/12/2023 MICROSCOPIC DESCRIPTION Slides are reviewed. GROSS DESCRIPTION Received in fixative is one container labeled with the patient's name and designated Descending polyp. The specimen consists of a estrada-pink polyp measuring 0.6 x 0.5 x 0.3 cm in one cassette. NOEMÍ/ 12/09/2023 TC: 5 CPT: 81209
[2023-12-09 09:53] VITALS: BP 173/98; BP 96/75; PULSE 91; RESP 16; TEMP 36.3; O2SAT 95
[2023-12-09 09:55] VITALS: BP 173/98; BP 91/73; PULSE 87; RESP 16; O2SAT 96
--- NOTE | 2023-12-09 09:55 | OP.CCLET_ITS ---
12/09/2023 Srinivas De Souza [address] [place] [address] Re : Colonoscopy procedure for Tramaine Small Dear Dr. De Souza This procedure was performed on Saturday, December 09, 2023. My impressions and recommendations are as follows: Impressions : - One medium polyp in the descending colon, removed with a hot snare. Resected and retrieved. Recommendations : - Discharge patient to home. - Resume previous diet. - Continue present medications. - Await pathology results. - Repeat colonoscopy in 5 years for surveillance based on pathology results. My findings are described in the full procedure note, which is enclosed. If I can be of further assistance, please feel free to contact me at Doctor phone number(s): , Work: . Sincerely, Erik Perales MD 12/09/2023 9:55:07 AM This report has been signed electronically.
--- NOTE | 2023-12-09 09:55 | OP.COLON_ITS ---
Patient Name: Tramaine Avila Procedure Date: 12/09/2023 9:24 AM Date of : 1965 Age: 58 Procedure: Colonoscopy Indications: Screening for colorectal malignant neoplasm Providers: Erik Perales MD Referring MD: Srinivas De Souza Medicines: Propofol per Anesthesia Patient Profile: This is a 58 year old male. Refer to note in patient chart for documentation of history and physical. Last Colonoscopy: none. The patient's first colonoscopy is today. Complications: No immediate complications. Estimated blood loss: Minimal. Procedure: Pre-Anesthesia Assessment: - Prior to the procedure, a History and Physical was performed, and patient medications and allergies were reviewed. The patient's tolerance of previous anesthesia was also reviewed. The risks and benefits of the procedure and the sedation options and risks were discussed with the patient. All questions were answered, and informed consent was obtained. Prior Anticoagulants: The patient has taken no anticoagulant or antiplatelet agents. After reviewing the risks and benefits, the patient was deemed in satisfactory condition to undergo the procedure. After I obtained informed consent, the scope was passed under direct vision. Throughout the procedure, the patient's blood pressure, pulse, and oxygen saturations were monitored continuously. The Colonoscope was introduced through the anus and advanced to the cecum, identified by appendiceal orifice and ileocecal valve. The colonoscopy was performed without difficulty. The patient tolerated the procedure well. The quality of the bowel preparation was good. The colonoscopy was performed without difficulty. The patient tolerated the procedure well. The quality of the bowel preparation was good. The ileocecal valve, appendiceal orifice, and rectum were photographed. Scope In: 9:37:11 AM Scope Withdrawal Time 0 hours 6 minutes 40 seconds Scope Out: 9:48:54 AM Total Procedure Duration Time 0 hours 11 minutes 43 seconds Findings: A medium polyp was found in the descending colon. The polyp was removed with a hot snare. Resection and retrieval were complete. Impression: - One medium polyp in the descending colon, removed with a hot snare. Resected and retrieved. Recommendation: - Discharge patient to home. - Resume previous diet. - Continue present medications. - Await pathology results. - Repeat colonoscopy in 5 years for surveillance based on pathology results. Procedure Code(s): --- Professional --- 22210, Colonoscopy, flexible; with removal of tumor(s), polyp(s), or other lesion(s) by snare technique Diagnosis Code(s): --- Professional --- Z12.11, Encounter for screening for malignant neoplasm of colon D12.4, Benign neoplasm of descending colon CPT copyright 2021 [employer]. All rights reserved. The codes documented in this report are preliminary and upon laborer wharf review may be revised to meet current compliance requirements. Erik Perales MD 12/09/2023 9:55:07 AM This report has been signed electronically. Number of Addenda: 0 Note Initiated On: 12/09/2023 9:24 AM
[2023-12-09 10:00] VITALS: BP 101/70; BP 173/98; PULSE 80; RESP 16; O2SAT 95
[2023-12-09 10:05] VITALS: BP 113/82; BP 173/98; PULSE 83; RESP 16; TEMP 36; O2SAT 95
[2023-12-09 10:20] VITALS: BP 173/98
== END 2023-12-09 10:34 | disposition home or self-care (01) ==
LOC: EN 08:32 → AC 08:37
PROVIDERS: PCP Family Medicine; Referring Provider Family Medicine; Visit Provider Surgery
PROC: 0DJD8ZZ Inspection of Lower Intestinal Tract, Via Natural or Artificial Opening Endoscopic (ICD-10-PCS; CPT 45378; principal; 2023-12-09 09:40)
DX: Z12.11 Encounter for screening for malignant neoplasm of colon (principal); D12.4 Benign neoplasm of descending colon; F17.210 Nicotine dependence, cigarettes, uncomplicated; I10 Essential (primary) hypertension; Z79.899 Other long term (current) drug therapy
CPT/HCPCS: 45385; 88305; J7120; J2405

== ENCOUNTER 2024-10-16 08:43 | Outpatient (RCR) | payer OTHER, SELFPAY ==
--- NOTE | 2024-10-16 13:14 | HP.PTEVAL_ITS ---
Patient's Visit Information Visit Information Visit Information: UGO KRUSE is a 59 year old M referred to Physical Therapy by Dr. Evangelist Avitia MD with a diagnosis of lumbar radiculopathy.. Date of Evaluation: 10/16/24 Physical Therapist: Lawrence Perkins DPT Visit Plan Frequency: 2x /Week Duration: 6 Weeks Plan: 1) slow extension progression as tolerated 2) neutral spine core stability exercises 3) educate in proper lifting mechanics and body awareness to reduce stress to lumbar spine with all activities IE: I gave him prone prop, REIL, neutral spine TA Subjective Subjective: Pt. is here today for his initial evaluation with diagnosis of lumbar radiculopathy. Pt. reports having increased pain since August, reports having lifting something heavy and has pain since. Pt. reports in lumbar spine and L leg. Gabapentin has improved symptoms. He did have an MRI done, but was hard to determine extent of injury form MRI. He reports having pain that extends to lateral aspect of his foot. Pt. denies N/T in LLE. PMH: lumbar discectomy ~26 years ago. Physician suggested starting with PT and pain management prior to doing surgical intervention. Pt. reports no myotomal weakness noted. His main complaint is now of his L hip and L lateral foot pain. Pt. is hopeful to reduce symptoms in order to get back to all work activities without limitations. Pain Lumbar spine: Pain Intensity (Out of 10): 0 Pain Intensity Range: 0 and 2 L hip and lateral leg: Pain Intensity (Out of 10): 1 Pain Intensity Range: 0 and 4 Objective Objective: POSTURE: Pt. has decent posture in stance. Pt. has no marked lateral shift. PALPATION: Pt. has tenderness at L lateral thigh and L lateral foot. He also has some symptoms at lower lumbar region. Hypomobility at L3-S1 region with spring testing, mild increase NW. NEURO: Pt. has normal myotomal signs. Normal DTR of BLEs and normal sensation in BLEs. Pt. is able to rise on heels and toes without issues. ROM: Lumbar spine: flexion min loss increase NW (tightness in B HS as well), ext mod loss NE, SB nil loss NE bilat, rotation nil loss NE bilat. Pt. has normal B hip ROM without increase in symptoms. MMT: PT. has normal 5/5 strength in BLEs, poor core strength GAIT: fairly normal gait pattern without lateral shift, decent arm swing noted as well Balance/Special Test Scores Oswestry Low Back Score: 7 Goals Goal 1:: LTG: pt. to be I with HEP. Goal Time Frame: 4-6 Weeks Goal 2:: STG: pt. to sleep throughout the night without increase in symptoms. Goal Time Frame: 2-4 Weeks Goal 3:: LTG: Pt. to have reduced LLE radicular symptoms by 50%. Goal Time Frame: 4-6 Weeks Goal 4:: LTG: Pt. to have increased core strength to fair to reduce stress to lumbar spine with all work activities. Goal Time Frame: 4-6 Weeks Goal 5:: LTG: Pt. to be able to complete all work related activities without increase in LLE or back symptoms. Goal Time Frame: 4-6 Weeks Rehabilitation Potential Physical Therapy Diagnosis: Pt. has signs and symptoms consistent with lumbar radiculopathy with LLE symptoms. Pt. has decent strength in distal LEs. Pt. does have some marked core weakness. Rehabilitation Potential: Excellent Anticipated Interventions Patient/Client Instruction: Educate patient on: Condition, Plan of Care, Risk Factors and Benefits of Fitness Program For the Purpose of:: To foster healthy habits, To improve decision making, To facilitate caregiver knowledge, To improve self management, To prevent re-injury and To improve ability to perform tasks related to life management Therapeutic Exercise to Include: Power training, Endurance training, Balance training, Body mechanics, Postural training, Flexibilty training, Active ROM, Dynamic Lumbar Stabilization and Isidoro Exercises For the Purpose of:: To decrease pain, To increase ROM, To improve nutrient delivery to tissue, To increase oxygenation perfusion, To improve muscle performance and motor function, To improve ability to perform ADL's, To increase tolerance to activity/condition/position, To improve performance and independence with ADL's, To improve health of tissue and To increase flexibility/ROM Text: Thank you for the opportunity to evaluate your patient. For Medicare and Medicare HMO plans, please review the plan of care and approve it. It will need to be FAXED BACK to us at [phone] for Medicare purposes. For Medicare only, by signing this I certify the plan of care. Please let me know if there are questions or concerns regarding this plan of care. Physician Signature: Date:
== END 2024-10-16 19:00 | disposition home or self-care (01) ==
LOC: PT 08:43
PROVIDERS: PCP Family Medicine; Referring Provider Orthopaedic Surgery Orthopaedic Surgery of the Spine; Visit Provider Orthopaedic Surgery Orthopaedic Surgery of the Spine
DX: M54.16 Radiculopathy, lumbar region (principal)
CPT/HCPCS: 97161

== ENCOUNTER → 2025-04-09 | Outpatient (CLI) | payer OTHER, SELFPAY ==
--- OUTSIDE RECORDS SUMMARY | 2025-04-09 07:05 | XMS RPT_ITS | CCD ---
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 Srinivas De Souza Primary Care Provider Dr. Robel Leyva Emergency Provider Dr. Srinivas Arshad Admit Provider Dr. Srinivas Arshad Other Provider Dr. Nick Conrad Other Provider Mahesh Casillas Attending Provider Unavailable Dr. Srinivas De Souza Primary Care Provider Peggy Giles Attending Provider Unavailable Dr. Srinivas De Souza Referring Provider Dr. Erik Perales Attending Provider Dr. Erik Perales Other Provider Srinivas De Souza Primary Care Unavailable Srinivas De Souza Referring Unavailable Evangelist Avitia Attending Unavailable Srinivas De Souza Primary Care Unavailable Milan Beeril Attending Unavailable Srinivas De Souza Attending Unavailable Srinivas De Souza Primary Care Unavailable Evangelist Avitia Attending Unavailable Evangelist Avitia Referring Unavailable Srinivas De Souza Primary Care Unavailable Medications Current Medications Medication Drug Class(es) Dates Sig (Normalized) Sig (Original) atorvastatin 40 mg oral tablet (6 sources) HMG-CoA Reductase Inhibitor Start: 08-12-2017 take 40 mg by mouth once daily Atorvastatin Active 40 MG PO DAILY August 12, 2017 1:00am busPIRone hydrochloride 7.5 mg oral tablet (6 sources) Start: 01-28-2022 take 7.5 mg by mouth twice daily Buspirone Active 7.5 MG PO TWICE A DAY January 28, 2022 12:00am Start: 01-28-2022 take 75 mg by mouth three times daily Buspirone Active 75 MG PO THREE TIMES A DAY January 28, 2022 12:00am finasteride 5 mg oral tablet (6 sources) 5-alpha Reductase Inhibitor Start: 08-11-2017 take 5 mg by mouth once daily Finasteride Active 5 MG PO DAILY August 11, 2017 1:00am LORazepam 1 mg oral tablet (6 sources) Benzodiazepine Start: 01-28-2022 take 1 mg by mouth once daily as needed Lorazepam Active 1 MG PO DAILY NEEDED January 28, 2022 12:00am losartan potassium 25 mg oral tablet (6 sources) Angiotensin 2 Receptor Devorah Start: 01-28-2022 take 25 mg by mouth once daily Losartan Active 25 MG PO DAILY January 28, 2022 12:00am metoprolol tartrate 25 mg oral tablet (6 sources) beta-Adrenergic Devorah Start: 12-07-2023 take 25 mg by mouth twice daily Metoprolol Tartrate Active 25 MG PO TWICE A DAY December 07, 2023 12:00am Start: 01-28-2022 take 25 mg by mouth twice jael y Metoprolol Tartrate Active 25 MG PO TWICE A DAY January 28, 2022 12:00am naltrexone hydrochloride 50 mg oral tablet (1 source) Opioid Antagonist Start: 12-07-2023 take 50 mg by mouth once daily Naltrexone Active 50 MG PO DAILY December 07, 2023 12:00am sildenafil 20 mg oral tablet (6 sources) Phosphodiesterase 5 Inhibitor Start: 01-28-2022 take 20 mg by mouth once daily Sildenafil (Pulm.Hypertensi on) Active 20 MG PO DAILY January 28, 2022 12:00am Problems Active Problems Problem Classification Problem Date Documented Da te Episodic/Chronic Acute and unspecified renal failure (7 sources) Injury of kidney; Translations: [Acute kidney failure, unspecified] Episodic Alcohol-related disorders (8 sources) Alcohol abuse; Translations: [Alcohol abuse, uncomplicated] Chronic Essential hypertension (6 sources) Hypertensive disorder; Translations: [Essential (primary) hypertension] 08-11-2017 Chronic Hyperplasia of prostate (6 sources) Benign prostatic hyperplasia; Translations: [Benign prostatic hyperplasia without lower urinary tract symptoms] 01-28-2022 Chronic Other lower respiratory disease (2 sources) Cough; Translations: [Cough] Onset: 08-04-2020 Episodic Other screening for suspected conditions (not mental disorders or infectious disease) (2 sources) Patient encounter status; Translations: [Encounter for screening for malignant neoplasm of colon] 10-19-2023 Episodic Pancreatic disorders (not diabetes) (8 sources) Alcohol-induced acute pancreatitis; Translations: [Alcohol induced acute pancreatitis without necrosis or infection] Episodic Residual codes; unclassified (8 sources) Alcoholism; Translations: [Alcohol use disorder] Episodic Screening and history of mental health and substance abuse codes (6 sources) Tobacco use and exposure - finding; Translations: [Personal history of nicotine dependence] 01-28-2022 Episodic Syncope (6 sources) Syncope; Translations: [Syncope and collapse] 08-11-2017 Episodic Unclassified (1 source) COVID-19; Translations: [COVID-19] Onset: 08-04-2020 Unclassified (1 source) Low back pain, unspecified; Translations: [Low back pain, unspecified] Onset: 09-18-2024 Past or Other Problems Problem Classification Problem Date Documented Da te Episodic/Chronic Spondylosis; intervertebral disc disorders; other back problems (1 source) Radiculopathy, lumbar region; Translations: [Radiculopathy, lumbar region] Onset: 10-16-2024 Episodic Results Test Name Value Interpretation Reference Range Facility Inital Evaluation (1) - PT 10-16-2024 Inital Evaluation (1) - PT [facility] Physical Therapy [facility] [place] [address] / REHABILITATION SERVICES INITIAL EVALUATION MR#: [id number] Acct: [id number] Name: UGO KRUSE Rep #: [id number] : 1965 59 From: Lawrence Perkins DPT Referring Dr.: Dr. Evangelist Avitia MD Status: REG RCR Insurance: [facility] SELF PAY INSURANCE Patient's Visit Information Visit Information Visit Information: UGO KRUSE is a 59 year old M referred to Physical Therapy by Dr. Evangelist Avitia MD with a diagnosis of lumbar radiculopathy.. Date of Evaluation: 10/16/24 Physical Therapist: Lawrence Perkins DPT Visit Plan Frequency: 2x /Week Duration: 6 Weeks Plan: 1) slow extension progression as tolerated 2) neutral spine core stability exercises 3) educate in proper lifting mechanics and body awareness to reduce stress to lumbar spine with all activities IE: I gave him prone prop, REIL, neutral spine TA Subjective Subjective: Pt. is here today for his initial evaluation with diagnosis of lumbar radiculopathy. Pt. reports having increased pain since August, reports having lifting something heavy and has pain since. Pt. reports in lumbar spine and L leg. Gabapentin has improved symptoms. He did have an MRI done, but was hard to determine extent of injury form MRI. He reports having pain that extends to lateral aspect of his foot. Pt. denies N/T in LLE. PMH: lumbar discectomy 26 years ago. Physician suggested starting with PT and pain management prior to doing surgical intervention. Pt. reports no myotomal weakness noted. His main complaint is now of his L hip and L lateral foot pain. Pt. is hopeful to reduce symptoms in order to get back to all work activities without limitations. Pain Lumbar spine: Pain Intensity (Out of 10): 0 Pain Intensity Range: 0 and 2 L hip and lateral leg: Pain Intensity (Out of 10): 1 Pain Intensity Range: 0 and 4 Objective Objective: POSTURE: Pt. has decent posture in stance. Pt. has no marked lateral shift. PALPATION: Pt. has tenderness at L lateral thigh and L lateral foot. He also has some symptoms at lower lumbar region. Hypomobility at L3-S1 region with spring testing, mild increase NW. NEURO: Pt. has normal myotomal signs. Normal DTR of BLEs and normal sensation in BLEs. Pt. is able to rise on heels and toes without issues. ROM: Lumbar spine: flexion min loss increase NW (tightness in B HS as well), ext mod loss NE, SB nil loss NE bilat, rotation nil loss NE bilat. Pt. has normal B hip ROM without increase in symptoms. MMT: PT. has normal 5/5 strength in BLEs, poor core strength GAIT: fairly normal gait pattern without lateral shift, decent arm swing noted as well Balance/Special Test Scores Oswestry Low Back Score: 7 Goals Goal 1:: LTG: pt. to be I with HEP. Goal Time Frame: 4-6 Weeks Goal 2:: STG: pt. to sleep throughout the night without increase in symptoms. Goal Time Frame: 2-4 Weeks Goal 3:: LTG: Pt. to have reduced LLE radicular symptoms by 50%. Goal Time Frame: 4-6 Weeks Goal 4:: LTG: Pt. to have increased core strength to fair to reduce stress to lumbar spine with all work activities. Goal Time Frame: 4-6 Weeks Goal 5:: LTG: Pt. to be able to complete all work related activities without increase in LLE or back symptoms. Goal Time Frame: 4-6 Weeks Rehabilitation Potential Physical Therapy Diagnosis: Pt. has signs and symptoms consistent with lumbar radiculopathy with LLE symptoms. Pt. has decent strength in distal LEs. Pt. does have some marked core weakness. Rehabilitation Potential: Excellent Anticipated Interventions Patient/Client Instruction: Educate patient on: Condition, Plan of Care, Risk Factors and Benefits of Fitness Program For the Purpose of:: To foster healthy habits, To improve decision making, To facilitate caregiver knowledge, To improve self management, To prevent re-injury and To improve ability to perform tasks related to life management Therapeutic Exercise to Include: Power training, Endurance training, Balance training, Body mechanics, Postural training, Flexibilty training, Active ROM, Dynamic Lumbar Stabilization and Isidoro Exercises For the Purpose of:: To decrease pain, To increase ROM, To improve nutrient delivery to tissue, To increase oxygenation perfusion, To improve muscle performance and motor function, To improve ability to perform ADL's, To increase tolerance to activity/condition/p osition, To improve performance and independence with ADL's, To improve health of tissue and To increase flexibility/ROM Text: Thank you for the opportunity to evaluate your patient. For Medicare and Medicare HMO plans, please review the plan of care and approve it. It will need to be FAXED BACK to us at [phone] for Medicare purposes. For Medicare only, by signing this I certify the faye (more content not included)... Normal [facility] L/S Spine Min 4 Viewson 12-3 L/S Spine Min 4 Views [facility] [address] [place] [address] L/S Spine Min 4 Views MR#: [id number] Acct: [id number] Name: UGO KRUSE Rep #: [id number] : 1965 M 59 From: Jordan Jacobs MD PCP: Dr. Srinivas De Souza DO Status: DEP AMB Study: L/S Spine Min 4 Views Date of Exam: 09/18/24 Exam# [id number] Ordering Dr: Meagan Hua [id number] STUDY: X-RAY - LUMBAR SPINE REASON FOR EXAM: Male, 59 years old. pain -- please do upright AP, LAT, flex/ext TECHNIQUE: 4 view(s) of the lumbar spine were obtained. COMPARISON: None FINDINGS: Normal lumbar lordosis. There is no substantial scoliosis. There is a normal alignment of the vertebrae. No subluxation on flexion extension views to suggest instability. There is multilevel endplate spondylosis of the lumbar vertebrae. Normal disc space heights. There is multilevel facet hypertrophy. The soft tissue structures are unremarkable. RAD/L/S Spine Min 4 Views IMPRESSION: Degenerative changes of the spine, as detailed above. No instability. Electronically Signed: Jordan Jacobs MD at 21:54 EST , CC: ZACK Montano; Dr. Srinivas De Souza DO [employer]itness [employer] Manager: Signed Normal [facility] Orthopedic Visit Reporton Orthopedic Visit Report [facility] [address] [place] [address] [place] [address] OFFICE VISIT Date of Service: 09/18/24 MR#: [id number] Acct: [id number] Name: UGO KRUSE Rep #: [id number] : 1965 Provider: Dr. Evangelist Avitia MD Age/Sex: 59/M Location: [facility] Status: Signed Intake Vital Signs 12/09/23 08:48 09/18/24 08:09 Height 5 ft 9 in 5 ft 9 in Weight: 235 lb BMI 34.7 Intake Visit Reasons: LUMBAR SPINE Chief Complaint: lumbar spine Is patient in pain?: Yes (lumbar spine) Pain scale (1-10): 2 Allergies No Known Allergies Allergy (Verified 09/18/24 08:09) Medications ???Medication ???Instructions ???Recorded ???Confirmed ???Type finasteride 5 mg tablet 5 mg PO DAILY PROSTATE 08/11/17 09/18/24 History atorvastatin 40 mg tablet 40 mg PO DAILY #30 tabs 08/12/17 09/18/24 Rx buspirone 7.5 mg tablet 7.5 mg PO BID 01/28/22 09/18/24 History lorazepam 1 mg tablet 1 mg PO DAILY PRN PRN Anxiety 01/28/22 09/18/24 History losartan 25 mg tablet 25 mg PO DAILY BP 01/28/22 09/18/24 History sildenafil (pulm.hypertension) 20 20 mg PO DAILY 01/28/22 09/18/24 History mg tablet metoprolol tartrate 25 mg tablet 25 mg PO BID 12/07/23 09/18/24 History gabapentin 300 mg capsule mg PO 09/18/24 09/18/24 History PFSH Medical History Wears glasses Prostate disease History of echocardiogram Anxiety Former smoker HTN (hypertension) Pancreatitis History of tobacco use BPH (benign prostatic hyperplasia) Alcohol use disorder Surgical History History of lumbar discectomy Social History household members: spouse housing: house current occupational status: employed Smoking Status: Current every day smoker tobacco type: cigarettes alcohol intake: current alcohol intake frequency: 3 or more drinks per day Alcohol type: beer and wine details: 6-8 beers daily with wine. HPI LUMBAR SPINE Details: This documentation accurately reflects the service provided and the decisions made by me, Dr. Evangelist Avitia MD 09/18/24 0808. Part of today???s visit was documented by Talya Giles LPN, acting as scribe. UGO KRUSE is a 59 year old M here today for initial evaluation of lumbar spine pain. He reports the onset was the beginning of August. He reports left sided low back and sciatic pain. The sciatic pain was so severe it was keeping him up at night. His pcp ordered an MRI and prescribed Gabapentin. He reports the Gabapentin has decreased his pain. He reports a prior lumbar discectomy approximately 26 years ago. He has never been seen by pain management or done PT. He denies numbness and tingling into his leg. Ugo has had at least 2 months history of lateral thigh and lateral leg radicular pain worse on the left than the right. He attributes it to lifting something heavy at work over late summer. He also has pain that goes into the lateral aspect of his left foot. Ortho Exam General General: Yes no acute distress Neurologic: Yes alert and Yes oriented x3 Spine SPINE TESTING CERVICAL THORACIC LUMBAR Musculoskeletal Strength 0=absent - 5=normal Details: Examination the back shows no tenderness. Neurologic motion lower extremities shows 5 x 5 power normal shows normal sensations in all dermatomes. Passive straight leg raise test is positive on the left. Coding Level of Care Code Off vis,new,level 4 Diagnoses Spinal stenosis of lumbar region with neurogenic claudication M48.062 Lumbar radiculopathy M54.16 Time Spent (min) 45 Assessment and Plan Assessment and Plan (1) Spinal stenosis of lumbar region with neurogenic claudication: Status: Acute (2) Lumbar radiculopathy: Status: Acute Orders: Orders L/S Spine Min 4 Views Today M54.50 - Low back pain, unspecified Plan X-rays done today in clinic and MRI done last month which is likely an open MRI were reviewed with the patient. These show disc height loss especially in the lower lumbar levels especially L5-S1 with vacuum phenomenon on extension view. There is no dynamic instability. MRI shows disc degeneration from L3-S1 with foraminal stenosis on both sides. Due to the MRI being an open MRI, it is difficult to assess details due to haziness of the pictures. Explained to him imaging findings in detail. He has developed lumbar radiculopathy worse than left than the right along the L5 dermatome and also has difficulty standing and walking for long peers of time. At this point, explained to him options of treatment which include continued nonoperative treat measures versus surgery. I suggested starting off with physical therapy and pain management consultation for consideration (more content not included)... Normal [facility] Absolute lymphocyte countOrd ered By: Dr. De Souza on 03-04-2023 Lymphocytes Auto (Unsp spec) [#/Vol] 2.17 10*3/uL 0.83-4.51 [facility] Basophil percentageOrdered B y: Dr. De Souza on 03-04-2023 Basophils/100 WBC (Bld) 0.6 % 0-1 [facility] Bilirubin [Mass/Vol] 0.40 mg/dL 0.20-1.00 [facility] Comment on above: For patients on eltr ombopag therapy, use of Dimension [place] TBIL is not recommended. Chloride [Moles/Vol] 105 mmol/L 98-107 [facility] Cholesterol [Mass/Vol] 155 mg/dL <200 [facility] Comment on above: <200 mg/dL Desirable 200-240 mg/dL Borderline >240 mg/dL High Risk Eosinophils/100 WBC (Bld) 1.3 % 0-5 [facility] Glucose [Mass/Vol] 108 mg/dL 74-106 [facility] Comment on above: Fasting Glucose resu lt from 100 to 125 mg/dL suggests IMPAIRED HOMEOSTASIS per A.D.A. criteria. Neutrophils (Bld) [#/Vol] 3.6 10*3/uL 2.0-7.7 [facility] Neutrophils/100 WBC (Bld) 53.5 % 47-70 [facility] Potassium [Moles/Vol] 4.2 mmol/L 3.5-5.1 [facility] Protein [Mass/Vol] 7.7 g/dL 6.4-8.2 [facility] Sodium [Moles/Vol] 141 mmol/L 136-145 [facility] Triglyceride [Mass/Vol] 282 mg/dL <199 [facility] Comment on above: The drugs N-Acetylcy steine and Metamizole may falsely depress this assay.Serum Triglycerides Reference Interval Normal <150 mg/dL Borderline high 150 - 199 mg/dL High 200 - 499 mg/dL Very High > or = 500 mg/dL WBC (Bld) [#/Vol] 6.7 10*3/uL 4.4-11.0 [facility] Blood erythrocytes count (nu mber/volume)Ordered By: Dr. eD Souza on 03-04-2023 RBC (Bld) [#/Vol] 4.02 10*6/uL 4.6-6.2 [facility] Blood hemoglobin measurement (mass/volume)Ordered By: Dr. De Souza on 03-04-2023 Hemoglobin (Bld) [Mass/Vol] 12.8 g/dL 13.0-16.5 [facility] Blood lymphocytes/100 leukoc ytesOrdered By: Dr. De Souza on 03-04-2023 Lymphocytes/100 WBC (Bld) 32.5 % 19-41 [facility] Blood monocytes/100 leukocyt esOrdered By: Dr. De Souza on 03-04-2023 Monocytes/100 WBC (Bld) 11.7 % 0-10 [facility] Blood platelet mean volumeOr dered By: Dr. De Souza on 03-04-2023 Platelet mean volume (Bld) [Entitic vol] 9.7 fL 6.2-12.0 [facility] Determination of erythrocyte mean corpuscular volume (MCV)Ordered By: Dr. De Souza on 03-04-2023 MCV (RBC) [Entitic vol] 96.8 fL 80-94 [facility] Hematocrit Auto (Bld) [Volum e fraction]Ordered By: Dr. De Souza on 03-04-2023 Hematocrit (Bld) [Volume fraction] 38.9 % 40-54 [facility] Laboratory - Chemistry and C hemistry - challengeOrdered By: Dr. De Souza on 03-04-2023 ALP [Catalytic activity/Vol] 91 U/L 45-117 [facility] ALT [Catalytic activity/Vol] 42 U/L 16-61 [facility] CO2 [Moles/Vol] 25.0 mmol/L 21.0-32.0 [facility] Globulin (S) [Mass/Vol] 3.7 g/dL 2.2-4.2 [facility] Urea nitrogen/Creatinine [Mass ratio] 22.1 mg/mg 10-20 [facility] Laboratory - Hematology and Cell countsOrdered By: Dr. De Souza on 03-04-2023 Erythrocyte distribution width (RBC) [Entitic vol] 49.1 fL 35.1-43.9 [facility] Erythrocyte distribution width (RBC) [Ratio] 13.7 % 11.6-14.6 [facility] Immature granulocytes/100 WBC (Bld) 0.400 % 0.0-0.9 [facility] Comment on above: IG% - Immature Granu locytes (promyelocytes, myelocytes and metamyelocytes) > 1% indicates that a LEFT SHIFT is Present. MCH (RBC) [Entitic mass] 31.8 pg 27.0-32.0 [facility] Nucleated RBC/100 WBC (Bld) [Ratio] 0 % 0-5 [facility] MCHC Auto (RBC) [Mass/Vol]Or dered By: Dr. De Souza on 03-04-2023 MCHC (RBC) [Mass/Vol] 32.9 g/dL 32-36 [facility] No Panel InformationOrdered By: Dr. De Souza on 03-04-2023 Estimated GFR (MDRD) Amer 104 mL/min >60 [facility] Comment on above: GFR Calc Estimated GFR (MDRD) Non-Af Amer 86 mL/min >60 [facility] Comment on above: Non- GFR Calc Prostate Specific Antigen Screen 0.62 ng/mL 0.00-4.00 [facility] Comment on above: This test was perfor med using the TPSA assay method for the[facility] chemistry system. Values obtained with differentassay methods cannot be used interchangably.When changing PSA assays in the course of monitoring apatient, additional sequential testing should be carriedout to confirm baseline values. Urine Microalbumin/Creatinine Ratio 120.2 mg/g CRE <30 [facility] Platelets bldOrdered By: Dr. De Souza on 03-04-2023 Platelets (Bld) [#/Vol] 297 10*3/uL 150-450 [facility] Serum or plasma albumin jaylan urement (mass/volume)Ordered By: Dr. De Souza on 03-04-2023 Albumin [Mass/Vol] 4.0 g/dL 3.2-5.0 [facility] Serum or plasma albumin/glob ulin mass ratioOrdered By: Dr. De Souza on 03-04-2023 Albumin/Globulin [Mass ratio] 1.1 {ratio} 0.9-2.4 [facility] Serum or plasma calcium jaylan urement (mass/volume)Ordered By: Dr. De Souza on 03-04-2023 Calcium [Mass/Vol] 9.1 mg/dL 8.5-10.1 [facility] Serum or plasma cholesterol in HDL measurement (mass/volume)Ordered By: Dr. De Souza on 03-04-2023 Cholesterol in HDL [Mass/Vol] 48 mg/dL >40 [facility] Comment on above: The drugs N-Acetylcy steine and Metamizole may falsely depress this assay. Reference Range HDL <40 mg/dL Low HDL Cholesterol HDL >or= 60 mg/dL High HDL Cholesterol Serum or plasma cholesterol in VLDL measurement (mass/volume)Ordered By: Dr. De Souza on 03-04-2023 Cholesterol in VLDL [Mass/Vol] 56 mg/dL 5-40 [facility] Serum or plasma creatinine m easurement (mass/volume)Ordered By: Dr. De Souza on 03-04-2023 Creatinine [Mass/Vol] 0.95 mg/dL 0.70-1.30 [facility] Comment on above: The validity of the calculated GFR & GFRAA in patients over 70 years has not been determined. Clinical correlation is essential. Serum or plasma low density lipoprotein (LDL) cholesterol measurement (mass/volume)Ordered By: Dr. De Souza on 03-04-2023 Cholesterol in LDL [Mass/Vol] 51 mg/dL 0-130 [facility] Serum or plasma urea nitroge n measurement (mass/volume)Ordered By: Dr. De Souza on 03-04-2023 Urea nitrogen [Mass/Vol] 21 mg/dL 7-18 [facility] Thin prep Papanicolaou smear with manual screeningOrdered By: Dr. De Souza on 03-04-2023 Thin prep Papanicolaou smear with manual screening 26 U/L 15-37 [facility] Thin prep Papanicolaou smear with manual screening 11 5-15 [facility] Thin prep Papanicolaou smear with manual screening 137.0 mg/L NO RANGE EST. [facility] Urine creatinine measurement (mass/volume)Ordered By: Dr. De Souza on 03-04-2023 Creatinine (U) [Mass/Vol] 114.00 mg/dL NO RANGE EST. [facility] Whole blood hemoglobin A1c/t otal hemoglobin ratio (mass fraction)Ordered By: Dr. De Souza on 03-04-2023 HbA1c (Bld) [Mass fraction] 6.1 % 3.8-5.6 [facility] Comment on above: Normal < 5.7 % Predi abetic 5.7 - 6.4 % Diabetic >or= 6.5 % Please note range changes. Basophil percentageon 2021 Bilirubin [Mass/Vol] 0.40 mg/dL 0.20-1.00 [facility] Work Phone: Comment on above: For patients on eltr ombopag therapy, use of Dimension [place] TBIL is not recommended. Chloride [Moles/Vol] 102 mmol/L 98-107 [facility] Work Phone: Glucose [Mass/Vol] 134 mg/dL 74-106 [facility] Work Phone: Comment on above: Fasting Glucose resu lt greater than or equal to 126 mg/dL suggests DIABETES MELLITUS per A.D.A. criteria. Potassium [Moles/Vol] 4.2 mmol/L 3.5-5.1 [facility] Work Phone: Protein [Mass/Vol] 8.2 g/dL 6.4-8.2 [facility] [facility] Work Phone: Sodium [Moles/Vol] 136 mmol/L 136-145 [facility] Work Phone: Laboratory - Chemistry and C hemistry - challengeon 05-28-2022 ALP [Catalytic activity/Vol] 103 U/L 45-117 [facility] Work Phone: ALT [Catalytic activity/Vol] 43 U/L 16-61 [facility] Work Phone: CO2 [Moles/Vol] 28.0 mmol/L 21.0-32.0 [facility] Work Phone: Globulin (S) [Mass/Vol] 4.2 g/dL 2.2-4.2 [facility] Work Phone: Urea nitrogen/Creatinine [Mass ratio] 21.9 mg/mg 10-20 [facility] Work Phone: No Panel Informationon 05-28 Estimated GFR (MDRD) Amer 93 mL/min >60 [facility] Work Phone: Comment on above: GFR Calc Estimated GFR (MDRD) Non-Af Amer 77 mL/min >60 [facility] Work Phone: Comment on above: Non- GFR Calc Serum or plasma albumin jaylan urement (mass/volume)on 05-28-2022 Albumin [Mass/Vol] 4.0 g/dL 3.2-5.0 [facility] Work Phone: Serum or plasma albumin/glob ulin mass ratioon 05-28-2022 Albumin/Globulin [Mass ratio] 1.0 {ratio} 0.9-2.4 [facility] Work Phone: Serum or plasma calcium jaylan urement (mass/volume)on 05-28-2022 Calcium [Mass/Vol] 10.0 mg/dL 8.5-10.1 [facility] Work Phone: Serum or plasma creatinine m easurement (mass/volume)on 05-28-2022 Creatinine [Mass/Vol] 1.05 mg/dL 0.70-1.30 [facility] Work Phone: Comment on above: The validity of the calculated GFR & GFRAA in patients over 70 years has not been determined. Clinical correlation is essential. Serum or plasma urea nitroge n measurement (mass/volume)on 05-28-2022 Urea nitrogen [Mass/Vol] 23 mg/dL 7-18 [facility] Work Phone: Thin prep Papanicolaou smear with manual screeningon 05-28-2022 Thin prep Papanicolaou smear with manual screening 36 U/L 15-37 [facility] Work Phone: Thin prep Papanicolaou smear with manual screening 6 5-15 [facility] Work Phone: Whole blood hemoglobin A1c/t otal hemoglobin ratio (mass fraction)on 05-28-2022 HbA1c (Bld) [Mass fraction] 6.3 % 3.8-5.6 [facility] Work Phone: Comment on above: Normal < 5.7 % Predi abetic 5.7 - 6.4 % Diabetic >or= 6.5 % Please note range changes. Absolute lymphocyte counton 01-31-2022 Lymphocytes Auto (Unsp spec) [#/Vol] 1.10 10*3/uL 0.83-4.51 [facility] Work Phone: Basophil percentageon 2021 Chloride [Moles/Vol] 102 mmol/L 98-107 [facility]: Glucose [Mass/Vol] 135 mg/dL 74-106 [facility] Work Phone: Comment on above: Fasting Glucose resu lt greater than or equal to 126 mg/dL suggests DIABETES MELLITUS per A.D.A. criteria. Potassium [Moles/Vol] 4.2 mmol/L 3.5-5.1 [facility] Work Phone: Sodium [Moles/Vol] 132 mmol/L 136-145 [facility] Work Phone: Basophils/100 WBC (Bld) 0.2 % 0-1 [facility] Work Phone: Cholesterol [Mass/Vol] 68 mg/dL <200 [facility] Work Phone: Comment on above: <200 mg/dL Desirable 200-240 mg/dL Borderline >240 mg/dL High Risk Eosinophils/100 WBC (Bld) 0.1 % 0-5 [facility] Work Phone: Neutrophils (Bld) [#/Vol] 13.7 10*3/uL 2.0-7.7 [facility] Work Phone: Neutrophils/100 WBC (Bld) 81.1 % 47-70 [facility] Work Phone: Triglyceride [Mass/Vol] 100 mg/dL [facility] Work Phone: Comment on above: The drugs N-Acetylcy steine and Metamizole may falsely depress this assay.Serum Triglycerides Reference Interval Normal <150 mg/dL Borderline high 150 - 199 mg/dL High 200 - 499 mg/dL Very High > or = 500 mg/dL WBC (Bld) [#/Vol] 16.8 10*3/uL 4.4-11.0 [facility] Work Phone: Blood erythrocytes count (nu mber/volume)on 01-31-2022 RBC (Bld) [#/Vol] 3.55 10*6/uL 4.6-6.2 [facility] Work Phone: Blood hemoglobin measurement (mass/volume)on 01-31-2022 Hemoglobin (Bld) [Mass/Vol] 11.4 g/dL 13.0-16.5 [facility] Work Phone: Blood lymphocytes/100 leukoc yteson 01-31-2022 Lymphocytes/100 WBC (Bld) 6.5 % 19-41 [facility] Work Phone: Blood monocytes/100 leukocyt eson 01-31-2022 Monocytes/100 WBC (Bld) 10.3 % 0-10 [facility] Work Phone: Blood platelet mean volumeon 01-31-2022 Platelet mean volume (Bld) [Entitic vol] 10.0 fL 6.2-12.0 [facility] Work Phone: Determination of erythrocyte mean corpuscular volume (MCV)on 01-31-2022 MCV (RBC) [Entitic vol] 96.1 fL 80-94 [facility] Work Phone: Hematocrit Auto (Bld) [Volum e fraction]on 01-31-2022 Hematocrit (Bld) [Volume fraction] 34.1 % 40-54 [facility] Work Phone: Laboratory - Chemistry and C hemistry - challengeon 01-31-2022 CO2 [Moles/Vol] 22.0 mmol/L 21.0-32.0 [facility] Work Phone: Urea nitrogen/Creatinine [Mass ratio] 15.7 mg/mg 10-20 [facility] Work Phone: Laboratory - Hematology and Cell countson 01-31-2022 Erythrocyte distribution width (RBC) [Entitic vol] 43.1 fL 35.1-43.9 [facility] Work Phone: Erythrocyte distribution width (RBC) [Ratio] 12.3 % 11.6-14.6 [facility] Work Phone: Immature granulocytes/100 WBC (Bld) 1.800 % 0.0-0.9 [facility] Work Phone: Comment on above: IG% - Immature Granu locytes (promyelocytes, myelocytes and metamyelocytes) > 1% indicates that a LEFT SHIFT is Present. MCH (RBC) [Entitic mass] 32.1 pg 27.0-32.0 [facility] Work Phone: Nucleated RBC/100 WBC (Bld) [Ratio] 0 % 0-5 [facility] Work Phone: MCHC Auto (RBC) [Mass/Vol]on 01-31-2022 MCHC (RBC) [Mass/Vol] 33.4 g/dL 32-36 [facility] Work Phone: No Panel Informationon 01-31 Estimated Creatinine Clearance Calc 42.99 ml/min [facility] Work Phone: Estimated GFR (MDRD) Amer 48 mL/min >60 [facility] Work Phone: Comment on above: GFR Calc Estimated GFR (MDRD) Non-Af Amer 40 mL/min >60 [facility] Work Phone: Comment on above: Non- GFR Calc Platelets bldon 01-31-2022 Platelets (Bld) [#/Vol] 215 10*3/uL 150-450 [facility] Work Phone: Serum or plasma calcium jaylan urement (mass/volume)on 01-31-2022 Calcium [Mass/Vol] 8.3 mg/dL 8.5-10.1 [facility] Work Phone: Serum or plasma cholesterol in HDL measurement (mass/volume)on 01-31-2022 Cholesterol in HDL [Mass/Vol] 19 mg/dL [facility] Work Phone: Comment on above: The drugs N-Acetylcy steine and Metamizole may falsely depress this assay. Reference Range HDL <40 mg/dL Low HDL Cholesterol HDL >or= 60 mg/dL High HDL Cholesterol Serum or plasma cholesterol in VLDL measurement (mass/volume)on 01-31-2022 Cholesterol in VLDL [Mass/Vol] 20 mg/dL 5-40 [facility] Work Phone: Serum or plasma creatinine m easurement (mass/volume)on 01-31-2022 Creatinine [Mass/Vol] 1.85 mg/dL 0.70-1.30 [facility] Work Phone: Comment on above: The validity of the calculated GFR & GFRAA in patients over 70 years has not been determined. Clinical correlation is essential. Serum or plasma low density lipoprotein (LDL) cholesterol measurement (mass/volume)on 01-31-2022 Cholesterol in LDL [Mass/Vol] 29 mg/dL 0-130 [facility] Work Phone: Serum or plasma urea nitroge n measurement (mass/volume)on 01-31-2022 Urea nitrogen [Mass/Vol] 29 mg/dL 7-18 [facility] Work Phone: Thin prep Papanicolaou smear with manual screeningon 01-31-2022 Thin prep Papanicolaou smear with manual screening 8 5-15 [facility] Work Phone: Basophil percentageon 2021 Basophil percentage 0 SEEN /hpf [facility] Work Phone: Bilirubin Test strip Ql (U)o n 01-30-2022 Bilirubin Ql (U) Negative Negative [facility] Work Phone: Blood manual differential co mment interpretation (narrative result)on 01-30-2022 Manual differential comment Juancarlos (Bld) [Interp] SCANNED [facility] Work Phone: Ketones Test strip Ql (U)on 01-30-2022 Ketones Ql (U) Negative Negative [facility] Work Phone: Laboratory - Chemistry and C hemistry - challengeon 01-30-2022 Sodium (U) [Moles/Vol] 19 mmol/L Not Establ. [facility] Work Phone: Mucus LM Ql (Urine sed)on Mucus Ql (Urine sed) 0 SEEN /hpf [facility] Work Phone: Nitrite Test strip Ql (U)on 01-30-2022 Nitrite Ql (U) Negative Negative [facility] Work Phone: Protein Test strip Ql (U)on 01-30-2022 Protein Ql (U) 100 mg/dl Negative [facility] Work Phone: Review by pathologiston 01-17 Pathologist review Juancarlos (Unsp spec) [Interp] May foll [facility] Work Phone: Squamous epithelial cells de tection in urine sediment by light microscopyon 01-30-2022 Epithelial cells.squamous LM Ql (Urine sed) 0-5 SEEN /hpf [facility] Work Phone: Urine blood detectionon 01-17 RBC Ql (U) 25 /ul Negative [facility] Work Phone: RBC Ql (U) 0 SEEN /hpf [facility] Work Phone: Urine clarityon 01-30-2022 Clarity (U) Clear Clear [facility] Work Phone: Urine color determinationon 01-30-2022 Color (U) Yellow Yellow [facility] Work Phone: Urine creatinine measurement (mass/volume)on 01-30-2022 Creatinine (U) [Mass/Vol] 150.00 mg/dL NO RANGE EST. [facility] Work Phone: Urine glucose detectionon Glucose Ql (U) Normal mg/dl Normal [facility] Work Phone: Urine leukocyte esterase det ection by dipstickon 01-30-2022 Leukocyte esterase Test strip Ql (U) Negative Negative [facility] Work Phone: Urine pHon 01-30-2022 pH (U) 6.0 [pH] [facility] Work Phone: Urine sediment bacteria coun t by microscopy (number/high power field)on 01-30-2022 Bacteria LM.HPF (Urine sed) [#/Area] 0 /[HPF] None Seen [facility] Work Phone: Urine specific gravity measu rementon 01-30-2022 Specific gravity (U) [Rel density] 1.010 [facility] Work Phone: Urobilinogen Auto test strip Ql (U)on 01-30-2022 Urobilinogen Ql (U) Normal mg/dl Normal [facility] Work Phone: Basophil percentageon 2021 Bilirubin [Mass/Vol] 0.60 mg/dL 0.20-1.00 [facility] Work Phone: Comment on above: For patients on eltr ombopag therapy, use of Dimension [place] TBIL is not recommended. Protein [Mass/Vol] 6.8 g/dL 6.4-8.2 [facility] Work Phone: Direct bilirubinon Bilirubin.direct [Mass/Vol] 0.12 mg/dL 0.00-0.30 [facility] Work Phone: Laboratory - Chemistry and C hemistry - challengeon 01-29-2022 ALP [Catalytic activity/Vol] 76 U/L 45-117 [facility] Work Phone: ALT [Catalytic activity/Vol] 33 U/L 16-61 [facility] Work Phone: Globulin (S) [Mass/Vol] 3.8 g/dL 2.2-4.2 [facility] Work Phone: Serum or plasma albumin jaylan urement (mass/volume)on 01-29-2022 Albumin [Mass/Vol] 3.0 g/dL 3.2-5.0 [facility] Work Phone: Thin prep Papanicolaou smear with manual screeningon 01-29-2022 Thin prep Papanicolaou smear with manual screening 48 U/L 15-37 [facility] Work Phone: Absolute lymphocyte counton 01-28-2022 Lymphocytes Auto (Unsp spec) [#/Vol] 0.91 10*3/uL 0.83-4.51 [facility] Work Phone: Basophil percentageon 2021 Amylase [Catalytic activity/Vol] 1472 U/L 25-115 [facility] Work Phone: Basophils/100 WBC (Bld) 0.2 % 0-1 [facility] Work Phone: Bilirubin [Mass/Vol] 0.70 mg/dL 0.20-1.00 [facility] Work Phone: Comment on above: For patients on eltr ombopag therapy, use of Dimension [place] TBIL is not recommended. Chloride [Moles/Vol] 95 mmol/L 98-107 [facility] Work Phone: Eosinophils/100 WBC (Bld) 0.0 % 0-5 [facility] Work Phone: Glucose [Mass/Vol] 171 mg/dL 74-106 [facility] Work Phone: Comment on above: Fasting Glucose resu lt greater than or equal to 126 mg/dL suggests DIABETES MELLITUS per A.D.A. criteria. Neutrophils (Bld) [#/Vol] 13.6 10*3/uL 2.0-7.7 [facility] Work Phone: [phone] Neutrophils/100 WBC (Bld) 83.0 % 47-70 [facility] Work Phone: [phone] Potassium [Moles/Vol] 4.0 mmol/L 3.5-5.1 [facility] Work Phone: [phone] Protein [Mass/Vol] 8.0 g/dL 6.4-8.2 [facility] Work [facility]: [phone] Sodium [Moles/Vol] 129 mmol/L 136-145 [facility] Work Phone: [phone] WBC (Bld) [#/Vol] 16.3 10*3/uL 4.4-11.0 [facility] Work [facility]: Blood erythrocytes count (nu mber/volume)on 01-28-2022 RBC (Bld) [#/Vol] 4.87 10*6/uL 4.6-6.2 [facility] Work Phone: Blood hemoglobin measurement (mass/volume)on 01-28-2022 Hemoglobin (Bld) [Mass/Vol] 15.6 g/dL 13.0-16.5 [facility] Work Phone: Blood lymphocytes/100 leukoc yteson 01-28-2022 Lymphocytes/100 WBC (Bld) 5.6 % 19-41 [facility] Work Phone: Blood monocytes/100 leukocyt eson 01-28-2022 Monocytes/100 WBC (Bld) 10.7 % 0-10 [facility] Work Phone: [phone] Blood platelet mean volumeon 01-28-2022 Platelet mean volume (Bld) [Entitic vol] 9.2 fL 6.2-12.0 [facility] Work Phone: Determination of erythrocyte mean corpuscular volume (MCV)on 01-28-2022 MCV (RBC) [Entitic vol] 89.7 fL 80-94 [facility] Work Phone: Direct bilirubinon 2 Bilirubin.direct [Mass/Vol] 0.17 mg/dL 0.00-0.30 [facility] Work Phone: Hematocrit Auto (Bld) [Volum e fraction]on 01-28-2022 Hematocrit (Bld) [Volume fraction] 43.7 % 40-54 [facility] Work Phone: Laboratory - Chemistry and C hemistry - challengeon 01-28-2022 ALP [Catalytic activity/Vol] 107 U/L 45-117 [facility] Work Phone: ALT [Catalytic activity/Vol] 45 U/L 16-61 [facility] Work Phone: CO2 [Moles/Vol] 25.0 mmol/L 21.0-32.0 [facility] Work Phone: Globulin (S) [Mass/Vol] 4.2 g/dL 2.2-4.2 [facility] Work Phone: Lipase [Catalytic activity/Vol] 68141 U/L 73-393 [facility] Work Phone: Urea nitrogen/Creatinine [Mass ratio] 18.0 mg/mg 10-20 [facility] Work Phone: Laboratory - Hematology and Cell countson 01-28-2022 Erythrocyte distribution width (RBC) [Entitic vol] 39.6 fL 35.1-43.9 [facility] Work Phone: Erythrocyte distribution width (RBC) [Ratio] 12.0 % 11.6-14.6 [facility] Work Phone: Immature granulocytes/100 WBC (Bld) 0.500 % 0.0-0.9 [facility] Work Phone: Comment on above: IG% - Immature Granu locytes (promyelocytes, myelocytes and metamyelocytes) > 1% indicates that a LEFT SHIFT is Present. MCH (RBC) [Entitic mass] 32.0 pg 27.0-32.0 [facility] Work Phone: Nucleated RBC/100 WBC (Bld) [Ratio] 0 % 0-5 [facility] Work Phone: MCHC Auto (RBC) [Mass/Vol]on 01-28-2022 MCHC (RBC) [Mass/Vol] 35.7 g/dL 32-36 [facility] Work Phone: No Panel Informationon 01-28 Estimated Creatinine Clearance Calc 74.36 ml/min [facility] Work Phone: Estimated GFR (MDRD) Amer 99 mL/min >60 [facility] Work Phone: Comment on above: GFR Calc Estimated GFR (MDRD) Non-Af Amer 81 mL/min >60 [facility] Work Phone: Comment on above: Non- GFR Calc Platelets bldon 01-28-2022 Platelets (Bld) [#/Vol] 309 10*3/uL 150-450 [facility] Work Phone: Review by pathologiston 01-17 Pathologist review Juancarlos (Unsp spec) [Interp] May roland [facility] Work Phone: Serum or plasma albumin jaylan urement (mass/volume)on 01-28-2022 Albumin [Mass/Vol] 3.8 g/dL 3.2-5.0 [facility] Work Phone: Serum or plasma calcium jaylan urement (mass/volume)on 01-28-2022 Calcium [Mass/Vol] 9.9 mg/dL 8.5-10.1 [facility] Work Phone: Serum or plasma creatinine m easurement (mass/volume)on 01-28-2022 Creatinine [Mass/Vol] 1.00 mg/dL 0.70-1.30 [facility] Work Phone: Comment on above: The validity of the calculated GFR & GFRAA in patients over 70 years has not been determined. Clinical correlation is essential. Serum or plasma urea nitroge n measurement (mass/volume)on 01-28-2022 Urea nitrogen [Mass/Vol] 18 mg/dL 7-18 [facility] Work Phone: Thin prep Papanicolaou smear with manual screeningon 01-28-2022 Thin prep Papanicolaou smear with manual screening 39 U/L 15-37 [facility] Work Phone: Thin prep Papanicolaou smear with manual screening 9 5- [facility] Work Phone: CORONAVIRUS PCR [CCL]on 07-20 REF LAB REPORT Positive Normal [facility] Comment on above: Performed By: #### [id number] #### [facility],[address] [place] [address] SEND TO ? YES Normal [facility] Comment on above: Performed By: #### [id number] #### [facility],[address] [place] [address] COVID 19 Result [employer] Positive Abnormal [facility] Comment on above: Result Comment: Posi tive for COVID19 (SARS CoV2) by PCR.(*) This test was developed and its performance characteristics determined by [facility] [place]. This test has been authorized by FDA under an Emergency Use Authorization (EUA). This test has been validated in accordance with the FDA's Guidance Document Policy for Diagnostics Testing in Laboratories Certified to Perform High Complexity Testing under CLIA prior to Emergency use Authorization for Coronavirus Disease 2019 during the Public Health Emergency issued on November 17, 2019. [facility] [address] [place] [address] Teja Miller III, M.D. [id number] Performed By: #### [id number] #### [facility],[address] [place] [id number] COVID 19 Source [employer] Nasopharyngeal Swab Normal [facility] Comment on above: Result Comment: [place] ected on 08/06 AT 1154: Previously reported as NASOPHARYNGEAL Performed By: #### [id number] #### [facility],[address] [place] [id number] Coronavirus 2019on 0 COVID 19 Result [employer]TER Abnormal Negative for COVID19 (SARS CoV2) by PCR. [facility] Comment on above: Result Comment: Posi tive for This test was developed and its performance characteristics determined by [facility]'s [facility] [place]. This test has been authorized by FDA under an Emergency Use Authorization (EUA). This test has been validated in accordance with the FDA's Guidance Document Policy for Diagnostics Testing in Laboratories Certified to Perform High Complexity Testing under CLIA prior to Emergency use Authorization for Coronavirus Disease 2019 during the Public Health Emergency issued on November 17, 2019. COVID19 (SARS This test was developed and its performance characteristics determined by [facility] [place]. This test has been authorized by FDA under an Emergency Use Authorization (EUA). This test has been validated in accordance with the FDA's Guidance Document Policy for Diagnostics Testing in Laboratories Certified to Perform High Complexity Testing under CLIA prior to Emergency use Authorization for Coronavirus Disease 2019 during the Public Health Emergency issued on November 17, 2019. CoV2) by This test was developed and its performance characteristics determined by [facility] [place]. This test has been authorized by FDA under an Emergency Use Authorization (EUA). This test has been validated in accordance with the FDA's Guidance Document Policy for Diagnostics Testing in Laboratories Certified to Perform High Complexity Testing under CLIA prior to Emergency use Authorization for Coronavirus Disease 2019 during the Public Health Emergency issued on November 17, 2019. PCR.(*) This test was developed and its performance characteristics determined by [facility] [place]. This test has been authorized by FDA under an Emergency Use Authorization (EUA). This test has been validated in accordance with the FDA's Guidance Document Policy for Diagnostics Testing in Laboratories Certified to Perform High Complexity Testing under CLIA prior to Emergency use Authorization for Coronavirus Disease 2019 during the Public Health Emergency issued on November 17, 2019. Coronavirus 2019on 0 COVID 19 Source [employer]TER Normal [facility] Comment on above: Result Comment: Naso pharyngeal Corrected on 08/06 AT 1154: Previously reported as NASOPHARYNGEAL Swab Corrected on 08/06 AT 1154: Previously reported as NASOPHARYNGEAL Vital Signs Date Time Vital Sign Value Performing Clinician Faci lity 12-09-2023 10:05-0400 Body temperature 96.8 [degF] Dr. Srinivas De Souza Work Phone: [facility] 12-09-2023 10:05-0400 Diastolic blood pressure 82 mm[Hg] Dr. Srinivas De Souza Work Phone: [facility] 12-09-2023 10:05-0400 Heart rate 83 /min Dr. Srinivas De Souza Work Phone: [facility] 12-09-2023 10:05-0400 Respiratory rate 16 /min Dr. Srinivas De Souza Work Phone: [facility] 12-09-2023 10:05-0400 SaO2% (BldA) [Mass fraction] 95 % Dr. Srinivas De Souza Work Phone: [facility] 12-09-2023 10:05-0400 Systolic blood pressure 113 mm[Hg] Dr. Srinivas De Souza Work Phone: [facility] 12-09-2023 08:48-0400 Body height 175.[address] Srinivas De Sozua Work Phone: [facility] 12-09-2023 08:48-0400 Body mass index (BMI) [Ratio] 32.2 kg/m2 Dr. Srinivas De Souza Work Phone: [facility] 12-09-2023 08:48-0400 Body weight [address] Srinivas De Souza Work Phone: [facility] 10-19-2023 10:41-0500 Body mass index (BMI) [Ratio] 31.7 kg/m2 Dr. Srinivas De Souza Work Phone: [facility] 10-19-2023 10:41-0500 Body weight 97.[address] Srinivas De Souza Work Phone: [facility] 01-31-2022 12:18-0400 Heart rate 94 /min Dr. Srinivas De Souza Work Phone: [facility] Work Phone: 01-31-2022 10:46-0400 SaO2% (BldA) [Mass fraction] 92 % Dr. Srinivas De Souza Work Phone: [facility] Work Phone: 01-31-2022 09:30-0400 Body temperature 98.7 [degF] Dr. Srinivas De Souza Work Phone: [facility] Work Phone: 01-31-2022 09:30-0400 Diastolic blood pressure 84 mm[Hg] Dr. Srinivas De Souza Work Phone: [facility] Work Phone: 01-31-2022 09:30-0400 Respiratory rate 18 /min Dr. Srinivas De Souza Work Phone: [facility] Work Phone: 01-31-2022 09:30-0400 Systolic blood pressure 142 mm[Hg] Dr. Srinivas De Souza Work Phone: [facility] Work Phone: 01-29-2022 12:54-0400 Body height 175.[address] Srinivas De Souza Work Phone: [facility] Work Phone: 01-29-2022 12:54-0400 Body weight 100.[address] Srinivas De Souza Work Phone: [facility] Work Phone: 01-28-2022 17:34-0400 Body mass index (BMI) [Ratio] 32.8 kg/m2 Dr. Srinivas De Souza Work Phone: [facility] Work Phone: 01-28-2022 15:41-0400 Body temperature 98.9 [degF] [facility] Work Phone: 01-28-2022 15:41-0400 Diastolic blood pressure 62 mm[Hg] [facility] Work Phone: 01-28-2022 15:41-0400 Heart rate 84 /min [facility] Work Phone: 01-28-2022 15:41-0400 Respiratory rate 16 /min [facility] Work Phone: 01-28-2022 15:41-0400 SaO2% (BldA) [Mass fraction] 98 % [facility] Work Phone: 01-28-2022 15:41-0400 Systolic blood pressure 145 mm[Hg] [facility] Work Phone: 01-28-2022 13:00-0400 Body height 170.18 cm [facility] Work Phone: 01-28-2022 13:00-0400 Body mass index (BMI) [Ratio] 34.9 kg/m2 [facility] Work Phone: 01-28-2022 13:00-0400 Body weight 101.1 kg [facility] Work Phone: Encounters Encounter Date Encounter Type Care Provider Facility Start: 03-04-2025 ambulatory [facility] Facility: [facility] Start: 10-16-2024 ambulatory Evangelist Avitia Facility:[facility] Start: 09-18-2024 End: 09-18-2024 ambulatory [facility] Facility:[facility] Start: 12-09-2023 Non-patient / Non-visit Dr. Alexsander De Souza Work Phone: [facility] Start: 12-09-2023 End: 12-09-2023 Admission to same day surgery center Dr. Srinivas De Souza Work Phone: [facility] Work Phone: Start: 12-09-2023 End: 12-09-[address] Srinivas De Souza Work Phone: [facility] Work Phone: Start: 10-19-2023 Non-patient / Non-visit Dr. Alexsander De Souza Work Phone: [facility] Work Phone: Start: 03-04-2023 End: 03-04-2023 ambulatory [facility] Work Phone: Start: 03-04-2023 End: 03-04-2023 Patient encounter procedure [facility] Start: 09-15-2022 End: 09-15-2022 ambulatory [facility] Work Phone: Start: 09-15-2022 End: 09-15-2022 [facility] Start: 05-28-2022 End: 05-28-2022 ambulatory [facility] Work Phone: Start: 05-28-2022 End: 05-28-2022 Patient encounter procedure [facility] Start: 01-30-2022 Non-patient / Non-visit Dr. Alexsander De Souza Work Phone: [facility] Start: 01-29-2022 Non-patient / Non-visit Dr. Alexsander De Souza Work Phone: [facility] Start: 01-28-2022 End: 01-31-2022 Evaluation and management of inpatient [facility] Start: 08-04-2020 End: 08-04-2020 Patient encounter procedure HEATHER SOUZA [facility] Procedures Date Procedure Procedure Detail Performing Clinician Start: 12-09-[address] Srinivas whiting Work Phone: Start: 09-15-2022 Plain chest X-ray Start: 01-30-2022 Plain chest X-ray Dr. Geno De Souza Work Phone: Start: 01-30-[address] Alexsander De Souza Work Phone: Start: 01-29-2022 US scan of gallbladder Dr. Srinivas De Souza Work Phone: Start: 01-28-2022 CT of abdomen and pe lvis without contrast Plan of Treatment Date Care Activity Detail Author Start: 12-09-2023 Patient discharge [facility] Start: 01-30-2022 Bacteria identified in Blood by Culture Blood Culture [facility] Work Phone: Colonoscopy [facility] Patient referral [facility] Work Phone: Immunizations Immunization Date Immunization Notes Care Provider Liset molina 05-23-2017 tetanus toxoid, redu lili diphtheria toxoid, and acellular pertussis vaccine, adsorbed [facility] 07-20-2016 Influenza virus vaccine [facility] Payers Date Payer Category Payer Self-pay [id number] 2010 Unknown [id number] 1965 Unknown [id number] Unknown [id number] Unknown [id number] Unknown [id number] Unknown [id number] Social History Date Type Detail Facility Start: 01-28-2022 End: 12-09-2023 Tobacco smoking status NHIS Unknown if ever smoked [facility] Start: 08-11-[address] [facility] Start: 08-11-[address] [facility] Start: 08-11-2017 Spouse/ Signif icant Other [facility] Start: 08-11-2017 Non-smoker [facility] Start: 1965 Sex Assigned At Male [facility] Goals Date Patient Goal Desired Activity /State Functional Status Date Assessment Result Facility 01-31-2022 Functional status Up ad gail;Bathroom Priv ilege [facility] Work Phone: Mental Status Date Assessment Result Facility 12-09-2023 Cognitive function Level Of Cons ciousness Awake;Appropriate [facility] Work Phone: 01-31-2022 Cognitive function Level Of Cons ciousness Awake;Follows Commands;Drowsy [facility] Work Phone: 01-29-2022 Cognitive function Voice/Name [facility] Work Phone: Procedure note 12-09-2023 Note Date & Type Note Facility 12-09-2023 Procedure note [facility] Procedure note 12-09-2023 Note Date & Type Note Facility 12-09-2023 Procedure note [facility] Evaluation note Note Date & Type Note Facility Evaluation note Diagnosis Onset Date Acute alcoholic pancreatitis acute Alcohol use disorder acute Alcohol abuse [facility] Work Phone: Evaluation note Note Date & Type Note Facility Evaluation note Diagnosis Onset Date Acute alcoholic pancreatitis acute Acute kidney injury acute Alcohol use disorder acute Alcohol abuse [facility] Work Phone: Evaluation note Note Date & Type Note Facility Evaluation note No assessment information availa ble [facility] Work Phone: Evaluation note Note Date & Type Note Facility Evaluation note Diagnosis Onset Date Encounter for screening for malignant neoplasm of colon acute [facility] Work Phone: History and physical note Note Date & Type Note Facility History and physical note Note Date/Time December 09, 2023 9:21am [facility] Medical Records Department [address] [place] [address] History & Physical Exam 12/09/23918 MR#: [id number] Acct: [id number] Name: UGO KRUSE Rep #:[id number] : 1965 58 From: Erik barbosa MD PCP: Dr. Srinivas De Souza, DO Status:[facility] Location: [place] [address] HPI - General HPI Narrative UGO KRUSE, is a 58 M who presents for screening colonoscopy. He has never had a colonoscopy in the past. He denies any abdominal pain or blood in the stool. He has no family history of colon cancer. [facility] Medical History (Updated 12/07/23 @ 15:19 by Penelope Peraza) Alcohol use disorder Anxiety BPH (benign prostatic hyperplasia) Former smoker History of echocardiogram History of tobacco use HTN (hypertension) Pancreatitis Prostate disease Wears glasses Home Medications finasteride 5 mg tablet 5 mg PO DAILY PROSTATE 08/11/17 [History Last Taken 01/28/22] atorvastatin 40 mg tablet 40 mg PO DAILY #30 tabs 08/12/17 [Rx Last Taken 01/28/22] buspirone 7.5 mg tablet 7.5 mg PO BID 01/28/22 [History Last Taken 12/09/23] lorazepam 1 mg tablet 1 mg PO DAILY PRN PRN Anxiety 01/28/22 [History Last Taken Unknown] losartan 25 mg tablet 25 mg PO DAILY BP 01/28/22 [History Last Taken 12/09/23] sildenafil (pulm.hypertension) 20 mg tablet 20 mg PO DAILY 01/28/22 [History Last Taken 01/28/22] metoprolol tartrate 25 mg tablet 25 mg PO BID 12/07/23 [History Last Taken 12/09/23] naltrexone 50 mg tablet 50 mg PO DAILY 12/07/23 [History Last Taken Unknown] Allergy/AdvReac Type Severity Reaction Status Date / Time No Known Allergies Allergy Verified 12/09/23 08:46 Surgical History (Updated 12/07/23 @ 15:14 by Penelope Peraza) History of lumbar discectomy Social History (Updated 10/19/23 @ 10:37 by Peggy Giles) household members: spouse housing: house current occupational status: employed Smoking Status: Current every day smoker tobacco type: cigarettes alcohol intake: current alcohol intake frequency: 3 or more drinks per day Alcohol type: beer and wine details: 6-8 beers daily with wine. Past Medical/Surgical History Planned Operation Planned Operative Procedure/s: COLONOSCOPY Previous Hospitalizations/Surgeries HX Hospitalizations: No Any Problems With Anesthesia: No You/Your Family Experience Fever (Hyperthermia) With Anes: No Cholinesterase deficiency: No Cardiovascular Hx Chest Pain within Last 2 months: No Hx of Irregular Heartbeat and/or Afib: No Hx Heart Attack: No Hx Hypertension: Yes Hx Cardiac Surgery/Stents/Etc.: No Hx Pain in Legs when Walking/Leg Cramps: No Respiratory Hx Chronic Obstructive Pulmonary Disease (COPD): No Hx Asthma: No Hx Emphysema: No Hx Sleep Apnea: No Hx Respiratory Tract Infection/Cold (presently): No Do You Snore Loudly (louder than talking or can be heard): No Do You Often Feel Tired/ Fatigued/ Sleepy Dring Daytime?: No Has Anyone Observed You Stop Breathing During Sleep?: No Result (for STOP score): Negative Hx Smoking: Yes Smoking Status: Current every day smoker Gastrointestinal Hx Gastrointestinal Bleed: No Hx Ulcer: No Difficulty Chewing/Swallowing: No Hx Unplanned Weight Loss of 20#: No Neurological Hx Seizures: No Hx Multiple Sclerosis: No Hx Parkinson's Disease: No Does patient have nerve stimulator: No Blood Disorder Hx Hepatitis: No Hx Cirrhosis: No Hx Anemia: No Hx Blood Disorders: No Genitourinary Hx Renal Disease: No Hx Dialysis: No Musculoskeletal Hx Arthritis: No Hx Rheumatoid Arthritis: No Endocrine Hx Diabetes: No Thyroid Disease: No Psycho/Social Hx Substance Use: No Hx Alcohol Use: Yes (A couple beers a day.) Hx Anxiety: Yes Hx Depression: No Hx Dementia: No Miscellaneous Hx Cancer: No Recent Exposure to Contagious Disease: No Allergies No Known Allergies Allergy (Verified 12/09/23 08:46) Maternal: - (Maternal family history of a stroke as well as aneurysm at age 52.) Paternal: Hypertension Discharge Is Pt Admitted From a Care Home, or a Longterm: No Who Could Help: Vital Signs Vital Signs Vital Signs: 12/09/23 08:48 Temperature 97.2 F L Temperature Source Temporal Pulse Rate 88 Respiratory Rate 16 Blood Pressure 173/98 H Blood Pressure Mean 123 Blood Pressure Source Monitor Blood Pressure Position Sitting Blood Pressure Location Left Arm Pulse Ox 98 Oxygen Delivery Method Room Air Weight Weight: 218 lb 4.122 oz Body Mass Index (BMI) 32.2 Physical Exam Const alert and oriented x3 HEENT normocephalic Eyes PERRL Resp normal respiratory effort and normal air movement Cardio regular rate and regular rhythm GI soft to palpation, non-tender and non-distended Extremity normal to inspection Assessment & Plan Assessment/Plan (1) Encounter for screening for malignant neoplasm of colon: PLAN: I explained endoscopy in detail to the patient. I explained the risks including but not limited to stroke or heart attack with anesthesia, perforationof the GI tract, bleeding, infection. I explained that any of these could necessitate further emergency surgery. The patient understands and all questions were answered sufficiently. The patient wishes to proceed with procedure. Erik Perales MD Pager: [facility] [address] [place] [address], [address] [place] [address] Office: Surgery Risks - Colonoscopy Risks Include but are not Limited To: Risks include but are not limited to: Bleeding, perforation requiring further surgery, inability to complete colonoscopy requiring barium enema. 12/09/23920 <Electronically signed by Erik Perales MD> Cosigner Signature (if applicable): CC: Dr. Erik Perales MD; Dr. Srinivas De Souza, DO~ Signed [facility] Work Phone: Hospital Discharge instructions Note Date & Type Note Facility Hospital Discharge instructions [facility] Work Phone: Summary Purpose Family History No Family History Records Found Relationship Condition Age at Onset Recorded Date/T hugh Unknown Family History?- Unknown August 112016 11:14pm Family History?- Unknown August 112016 11:14pm Family History?Hypertension Unknown August 11, 2017 11:14pm Relationship Condition Age at Onset Recorded Date/T hugh Unknown Family History?- Unknown August 112016 10:14pm Family History?- Unknown August 112016 10:14pm Family History?Hypertension Unknown August 11, 2017 10:14pm Relationship Condition Age at Onset Recorded Date/T hugh Unknown Family History?- Unknown August 112016 11:14pm Family History?- Unknown December 09, 2023 9:21am Family History?Hypertension Unknown December 09, 2023 9:21am Advance Directives No Advanced Directives Records Found Advance Directive Response Recorded Date/ Time Living Will Yes January 28, 2022 3 :27pm Power of Packing Machine Operator Yes January 28, 2022 3:27pm Advance Directive Response Recorded Date/ Time Living Will Yes January 28, 2022 2 :27pm Power of Packing Machine Operator Yes January 28, 2022 2:27pm Advance Directive Response Recorded Date/ Time Name of Medical Power of Packing Machine Operator December 07, 2023 3:14pm Living Will Yes December 07, 2023 3:14pm Power of Packing Machine Operator Yes December 06 3:14pm Chief Complaint and Reason for Visit Chief Complaint RECURRENT ALCOHOLIC PANCREATITIS Reason for Visit Acute alcoholic panc reatitis Alcohol use disorder Alcohol abuse Chief Complaint RECURRENT ALCOHOLIC PANCREATITIS RECURRENT ALCOHOLIC PANCREATITIS RECURRENT ALCOHOLIC PANCREATITIS Reason for Visit Acute alcoholic panc reatitis Acute kidney injury Alcohol use disorder Alcohol abuse Chief Complaint A1C, CMP Chief Complaint A1C, CMP COUGH, CRACKLES, RECENT ILLNESS Chief Complaint Amb Documentation Reason for Visit Encounter for screen ing for malignant neoplasm of colon Additional Source Comments (unrecognized sect ion and content) No Status Records FoundNo Status Records FoundNo Status Records Found INFORMATION SOURCE (unrecogn ized section and content) DATE CREATED AUTHOR 08/07/2020 [facility] DATE CREATED AUTHOR AUTHOR'S ORGANIZ ATION 08/11/2020 [facility] DATE CREATED AUTHOR AUTHOR'S ORGANIZ ATION 03/06/2025 [facility] Goals (unrecognized section and content) Goals may be documented in a n alternate sectionGoals may be documented in an alternate sectionGoals may be documented in an alternate sectionGoals may be documented in an alternate sectionGoals may be documented in an alternate section Care Teams (unrecognized sec tion and content) Team Status: Active Member Role Status Dates Dr. Srinivas De Souza , DO Family Provider Active Dr. Srinivas De Souza , DO Primary Care Provider Active Team Status: Inactive Member Role Status Dates Dr. Srinivas De Souza , DO Primary Care Prov ider, Attending Provider, Referring Provider Active Team Status: Active Member Role Status Dates Dr. Srinivas De Souza , DO Primary Care Provider Active Peggy Giles Attending Provider Active Team Status: Active Member Role Status Dates Dr. Srinivas De Souza DO Primary Care Provider, [facility] Active Dr. Erik Perales MD Attending Provider, Other Provider Active Team Status: Inactive Member Role Status Dates Dr. Srinivas De Souza DO Primary Care Provider, Radha ricketts Provider Active Dr. Erik Perales MD Attending Provider Active FOR RECORDS PERTAINING TO PATIENTS WHO ARE OR HAVE BEEN ENROLLED IN A CHEMICAL DEPENDENCY/SUBSTANCEABUSE PROGRAM, SOME INFORMATION MAY BE OMITTED. This clinical summary was aggregated from multiple sources. Caution should be exercised in using it in the provision of clinical care. This summary normalizes information from multiple sources, and as a consequence, information in this document may materially change the coding, format and clinical context of patient data. In addition, data may be omitted in some cases. CLINICAL DECISIONS SHOULD BE BASED ON THE PRIMARY CLINICAL RECORDS. [facility] [employer] [facility]. provides no warranty or guarantee of the accuracy or completeness of information in this document.
[2025-04-09 10:12] LABS: Hematocrit 37.2 % (40-54); Hemoglobin 12.8 g/dL (13.0-16.5); Immature Granulocytes Count 0.030 X10^3/uL (0.0-0.0); Mean Corp Hgb Conc 34.4 g/dL (32-36); Mean Corpuscular Volume 92.3 fL (80-94); Mean Platelet Vol. 10.0 fl (6.2-12.0); NRBC Flagged by Analyzer 0 % (0-5); Platelet Count 302 K/mm3 (150-450); RBC Distribution Width CV 12.4 % (11.6-14.6); RBC Distribution Width SD 42.4 fl (35.1-43.9); Red Blood Count 4.03 M/mm3 (4.6-6.2); White Blood Count 8.2 K/mm3 (4.4-11.0)
[2025-04-09 10:41] LABS: Creatinine, Urine (random) 431.00 mg/dL (39.00-259.00); Microalbumin,Random Urine 88.0 mg/L (<20 mg/L)
[2025-04-09 10:57] LABS: AST(SGOT) 25 U/L (<=37); Alanine Aminotransfer ALT/SGPT 36 U/L (<=46); Albumin, Serum 4.4 g/dL (3.4-4.8); Alkaline Phosphatase 101 U/L (40-129); Anion Gap 15 (5-15); BUN 25 mg/dL (4-19); BUN/Creat Ratio 21.3 RATIO (10-20); Calcium,Total 9.8 mg/dL (7.6-11.0); Carbon Dioxide 22.4 mmol/L (21.0-32.0); Chloride 97 mmol/L (98-108); Cholesterol 168 mg/dL (<=200); Globulin 3.0 g/dL (2.2-4.2); Glucose 159 mg/dL (70-99); Low Density Lipoprotein Calc. 42 mg/dL; PSA,Total - Annual Screen 0.27 ng/mL (0.02-4.00); Potassium 4.3 mmol/L (3.3-5.1); Triglycerides 432 mg/dL; Very Low Density Lipoprotein 86 mg/dL (5-40); cholesterol:hdl ratio screen 4.22
== END | disposition home or self-care (01) ==
LOC: MTLAB 07:02
PROVIDERS: PCP Family Medicine; Referring Provider Family Medicine; Visit Provider Family Medicine
DX: Z00.00 Encounter for general adult medical examination without abnormal findings (principal); E11.9 Type 2 diabetes mellitus without complications; Z12.5 Encounter for screening for malignant neoplasm of prostate
CPT/HCPCS: 36415; 80053; 80061; 82043; 82570; 83036; 84153; 85025; G0103